=== PATIENT | female | born 1990 | race Caucasian/White ===

== ENCOUNTER 2017-10-19 10:56 | Emergency (ER) | payer BC, SELFPAY ==
[2017-10-19 11:18] VITALS: BP 136/72; PULSE 69; RESP 20; TEMP 36.6; O2SAT 97; BMI 26.4
--- NOTE | 2017-10-19 11:18 | XR_ITS ---
XR knee RT 4V COMPARISON: Right knee 04/24/2017 HISTORY: [place] popping sound in the knee, previous surgery of the knee TECHNIQUE: AP PA and lateral weight-bearing views and sunrise view FINDINGS: The 2 threaded screws are again seen in the proximal tibia for the previous tibial tubercle osteotomy area the medial lateral joint space appear normal. There is a somewhat hypoplastic appearing patella. There is no obvious effusion. IMPRESSION: Postsurgical changes stable, no definite acute pathology noted
--- NOTE | 2017-10-19 12:03 | HMH.EDUTC ---
[facility] [place] Clinical Impression: Right anterior knee pain, Nail-patella syndrome Disposition: Home, Self-Care Condition on Discharge: Good Instructions: How to Use Crutches, How To Perform RICE (Rest, Ice, Compress, Elevate), DI for Knee Pain, How to Use a Knee Immobilizer Additional Instructions: * nonweight bearing right lower extremity * Rest * ice 15-20 mins 3-4 times a day * knee immobilizer for support and swelling unless in shower so sitting still with knee extended and elevated and supported. Be sure not too tight but not too loose either * Elevate as discussed as much as possible to help reduce swelling and therefore, pain * Ibuprofen every 6 hours as needed for pain and inflammation. If you need something more, you can take tylenol every 4 hours as needed as long as your primary care provider has told you it is ok to take both. Referrals: Julian Adkins MD [Staff Physician] - (Call Dr. adkins's office first thing Saturday. Report symptoms and visit to [facility]. Be sure they know we did xrays as he will likely review before scheduling your follow up appointment. Return for new or worsening symptoms) Time of Disposition: 12:22 Medical Decision Making Vital Signs: 10/19/17 11:18 Temperature 97.8 F Temperature Source Temporal Artery Scan Pulse Rate [Right Radial] 69 Respiratory Rate 20 Blood Pressure [Right Arm] 136/72 Blood Pressure Mean [Right Arm] 93 Blood Pressure Source [Right Arm] Automatic Cuff Blood Pressure Position [Right Arm] Sitting 02 Sat by Pulse Oximetry 97 Oxygen Delivery Method Room Air Orders (Tests/Meds): ORDERS Category Date Time Status XR knee RT 4V Stat Exams 10/19/17 11:18 Taken - Radiology Data #1 Image(s): Knee (right) Image Reviewed: Yes I reviewed the patient's radiology image w/the ED provider [facility] xrays w/ NIKKI Brady. No acute findings. Hx of surgery and nail patella syndrome present but no acute findings. He agrees that knee immobilizer and no weight bearing until follow up with ortho - Sumanth Inquiry Pt receiving controlled substance: No [facility] [place] - General Stated complaint: right knee pain Time Seen by Provider: 10/19/17 12:04 Mode of Arrival: Family Vehicle Source of Information: Patient Limitations: No Limitations Description of Symptoms (Recalled from Triage Doc. by RN): PT STATES THAT SHE HAD RIGHT KNEE SURGERY IN FEBRUARY OF 2017 BY AND WAS TOLD TO EXPECT NUMBNESS AND TINGLING R/T NERVE DAMAGE. PT STATES THAT SHE WAS SITTING STYLE WHEN SHE EXTENDED HER LEG SHE HEARD A POP AND IS NOW EXPERIENCING PAIN. HEENT Symptoms (Recalled from RN notes): No Resp Symptoms (Recalled from RN notes): No Skin Symptoms (Recalled from RN notes): No MS Symptoms (Recalled from RN notes): Yes (RIGHT KNEE PAIN AFTER HEARING A POP) Functional Status (Recalled from RN notes): NA - History of Present Illness Provider Complaint: c/o right anterior knee pain x 2-3 days. 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 Surgery by Dr. adkins in Summer 2016 because my patella kept dislocating . pt reports nerves were cut during the procedure and she was told to expect N/T. No new injury but several days ago she was sitting style and when she straightened out her right knee, she heard a pop and has had right anterior knee pain with intermittent swelling since. No treatment before arrival. Hasn't taken or tried anything for symptoms. Full baseline ROM but pain w/ movement, primarily w/ flexion past 90 degrees. N/T unchanged in last several days yet worse since last saw Jed 3 months ago. - Related Data Home Medications Medication Instructions Recorded Confirmed Estrogen,Con/M-Progest Acet 1 each PO DAILY 10/19/17 10/19/17 [Prempro 0.3 mg-1.5 mg Tablet] Pantoprazole Sodium [Protonix 40mg 40 mg PO DAILY 10/19/17 10/19/17 tablet] Sucralfate [Carafate 1gm Tab] 1 gm PO ACHS 10/19/17 10/19/17 Allergies Allergy/AdvReac Type Severity Reaction Stat
--- NOTE | 2017-10-19 12:15 | ED_ITS ---
[facility] [place] Clinical Impression: Right anterior knee pain, Nail-patella syndrome Disposition: Home, Self-Care Condition on Discharge: Good Instructions: How to Use Crutches, How To Perform RICE (Rest, Ice, Compress, Elevate), DI for Knee Pain, How to Use a Knee Immobilizer Additional Instructions: * nonweight bearing right lower extremity * Rest * ice 15-20 mins 3-4 times a day * knee immobilizer for support and swelling unless in shower so sitting still with knee extended and elevated and supported. Be sure not too tight but not too loose either * Elevate as discussed as much as possible to help reduce swelling and therefore , pain * Ibuprofen every 6 hours as needed for pain and inflammation. If you need something more, you can take tylenol every 4 hours as needed as long as your primary care provider has told you it is ok to take both. Referrals: Julian Adkins MD [Staff Physician] - (Call Dr. adkins's office first thing Saturday. Report symptoms and visit to [facility]. Be sure they know we did xrays as he will likely review before scheduling your follow up appointment. Return for new or worsening symptoms) Time of Disposition: 12:22 Medical Decision Making Vital Signs: 10/19/17 11:18 Temperature 97.8 F Temperature Source Temporal Artery Scan Pulse Rate [Right Radial] 69 Respiratory Rate 20 Blood Pressure [Right Arm] 136/72 Blood Pressure Mean [Right Arm] 93 Blood Pressure Source [Right Arm] Automatic Cuff Blood Pressure Position [Right Arm] Sitting 02 Sat by Pulse Oximetry 97 Oxygen Delivery Method Room Air Orders (Tests/Meds): ORDERS Category Date Time Status XR knee RT 4V Stat Exams 10/19/17 11:18 Taken - Radiology Data #1 Image(s): Knee (right) Image Reviewed: Yes I reviewed the patient's radiology image w/the ED provider [facility] xrays w/ NIKKI Brady. No acute findings. Hx of surgery and nail patella syndrome present but no acute findings. He agrees that knee immobilizer and no weight bearing until follow up with ortho - Sumanth Inquiry Pt receiving controlled substance: No [facility] [place] - General Stated complaint: right knee pain Time Seen by Provider: 10/19/17 12:04 Mode of Arrival: Family Vehicle Source of Information: Patient Limitations: No Limitations Description of Symptoms (Recalled from Triage Doc. by RN): PT STATES THAT SHE HAD RIGHT KNEE SURGERY IN FEBRUARY OF 2017 BY AND WAS TOLD TO EXPECT NUMBNESS AND TINGLING R/T NERVE DAMAGE. PT STATES THAT SHE WAS SITTING STYLE WHEN SHE EXTENDED HER LEG SHE HEARD A POP AND IS NOW EXPERIENCING PAIN. HEENT Symptoms (Recalled from RN notes): No Resp Symptoms (Recalled from RN notes): No Skin Symptoms (Recalled from RN notes): No MS Symptoms (Recalled from RN notes): Yes (RIGHT KNEE PAIN AFTER HEARING A POP) Functional Status (Recalled from RN notes): NA - History of Present Illness Provider Complaint: c/o right anterior knee pain x 2-3 days. 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 Surgery by Dr. adkins in Summer 2016 because my patella kept dislocating . pt reports nerves were cut during the procedure and she was told to expect N/T. No new injury but several days ago she was sitting style and when she straightened out her right knee, she heard a pop and has had right anterior knee pain with intermittent swelling since. No treatment before arrival. Hasn't taken or tried anything for symptoms. Full baseline ROM but pain w/ movement, primarily w/ flexion past 90 degrees.
[2017-10-19 12:25] VITALS: BP 125/77; PULSE 67; RESP 20; TEMP 36.9; O2SAT 98
== END 2017-10-19 12:28 | disposition home or self-care (01) ==
PROVIDERS: Emergency Provider Nurse Practitioner Family
DX: M25.561 Pain in right knee (principal); Q87.2 Congenital malformation syndromes predominantly involving limbs
CPT/HCPCS: 73564; 99202

== ENCOUNTER → 2017-11-22 10:22 | Outpatient (CLI) | payer BC, SELFPAY ==
[2017-11-22 10:28] LABS: Microscopic, Urine URINE MICROSCOPIC (MICROSCOPIC)
[2017-11-22 13:35] LABS: Appearance,Urine SL CLOUDY (Clear); Bilirubin,Urine Negative (Negative); Blood, Urine Negative (Negative); Color,Urine YELLOW (Yellow); Glucose,Urine (UA) Negative (Negative); Ketones,Urine Negative (Negative); Leukocyte Esterase,Urine Negative (Negative); Nitrate,Urine Negative (Negative); Protein,Urine Negative (Negative); Specific Gravity, Urine 1.015 (1.005-1.030); Urobilinogen,Urine 0.2 EU/dl (0.2)
[2017-11-22 13:59] LABS: Anion Gap 12.5 mEq/L (5-15); Blood Urea Nitrogen 11 mg/dL (7-18); Calcium 8.6 mg/dL (8.5-10.1); Carbon Dioxide 26 mmol/L (21.0-32.0); Chloride 105 mmol/L (98-107); Creatinine,Serum 0.71 mg/dL (0.55-1.02); Estimated Glomerular Filt Rate 100 ml/min (>60); GFR (African American) 120 ML/MIN (>60); Glucose 81 mg/dL (74-106); Phosphorous 3.3 mg/dL (2.4-4.9); Potassium 3.5 mmoL/L (3.5-5.1); Sodium 140 mmol/L (136-145)
[2017-11-22 14:06] LABS: Amorphous Sediment,Urine 1+ /lpf; Bacteria,Urine 1+ /lpf; Squamous Epithelial Cell,Urine 50-100 #/hpf (0-5)
[2017-11-22 14:16] LABS: Creatinine,Urine Random 87 mg/dL (20-320); Total Protein,Urine Random 19.7 mg/dL (0.0-11.9)
== END ==
PROVIDERS: Visit Provider Internal Medicine Nephrology
DX: Z01.818 Encounter for other preprocedural examination (principal)
CPT/HCPCS: 36415; 80069; 81001; 82570; 84155

== ENCOUNTER → 2018-06-03 10:18 | Outpatient (CLI) | payer BC, SELFPAY ==
--- NOTE | 2018-06-03 10:24 | XR_ITS ---
XR knee RT 2V HISTORY: Follow-up surgery ITS.REASON: 6 month post op check ORDERING PHYSICIAN: Julian Adkins MD PATIENT AGE: 27 years COMPARISON: 10/19/2017 FINDINGS: Status post tibial tubercle osteotomy with patellar tendon transfer. The osteotomy site is very perceptible consistent with healing of the osteotomy. Hypoplastic patella once again noted. IMPRESSION: Good alignment status post tibial tuberosity osteotomy with patellar tendon transfer with hypoplastic patella
== END ==
PROVIDERS: PCP Physician Assistant; Visit Provider Orthopaedic Surgery
DX: Z47.89 Encounter for other orthopedic aftercare (principal); M25.561 Pain in right knee
CPT/HCPCS: 73560

== ENCOUNTER → 2018-06-04 08:34 | Outpatient (CLI) | payer BC, SELFPAY ==
--- NOTE | 2018-06-04 08:35 | US_ITS ---
US transvaginal Ordering Physician: Bobby Maloney MD Patient Age: 27 years: Female HISTORY: ITS.REASON: pelvic mass Pelvic pain history of total hysterectomy per technologist MIKE. Recent CT showed left pelvic mass TECHNIQUE: Transvaginal pelvic ultrasound COMPARISON :CT abdomen pelvis from 06/01/2018 . Ultrasound pelvis June 2015. FINDINGS Uterus surgically removed . The technologist states the patient has had a total hysterectomy. I see from ultrasound June 2015 the uterus was removed the patient had both ovaries at that time On today's study Left ovary (or remnant left ovary) = 1.9 cm x 1.4 cm overall size. Slightly bilobed configuration of this left ovary which matches the CT Within the larger lobe of this left ovary there is a there is a up to 8.5 mm x 7.5 mm cyst. . No right ovary is identified. No fluid in cul-de-sac. IMPRESSION... The patient is supposed to have had total hysterectomy... As by history provided by technologist MIKE However we see a bilobed structure at posterior left adnexa,. Thus If this history is correct, is a likely left ovarian remnant.. It measures up to 1.9 x 1.4 cm and contains a 8.5 mm cyst Findings fairly well matched appearance posterior left pelvis on recent CT . no right ovary identified Uterus surgically absent as is
== END ==
PROVIDERS: PCP Physician Assistant; Visit Provider Obstetrics & Gynecology
DX: R19.00 Intra-abdominal and pelvic swelling, mass and lump, unspecified site (principal)
CPT/HCPCS: 76830

== ENCOUNTER → 2018-06-17 13:06 | Outpatient (CLI) | payer BC, SELFPAY ==
--- NOTE | 2018-06-17 13:06 | US_ITS ---
US transvaginal HISTORY: ITS.REASON: Pelvic Pain, follow-up left ovarian remnant cyst ORDERING PHYSICIAN: Bobby Maloney MD PATIENT AGE: 27 years Comparison: None FINDINGS: There has been a prior hysterectomy. Right ovary is also been removed. What appears to represent the left ovary measures 2.9 x 1.3 cm and contains a 2 cm cyst. An additional small cyst is also noted at 6 mm involving the left ovary. Small amount of cul-de-sac fluid noted. There is blood flow to the left ovary. IMPRESSION: 1. Prior hysterectomy and right oophorectomy. 2. There is a 2 cm and a 0.6 cm left ovarian cyst
== END ==
PROVIDERS: PCP Obstetrics & Gynecology; Visit Provider Obstetrics & Gynecology
DX: R10.2 Pelvic and perineal pain (principal)
CPT/HCPCS: 76830

== ENCOUNTER → 2018-06-20 11:32 | Outpatient (CLI) | payer BC, SELFPAY ==
[2018-06-21 18:10] LABS: Cancer Antigen (CA) 125 8.6 U/mL (0.0-38.1)
== END ==
PROVIDERS: PCP Obstetrics & Gynecology; Visit Provider Obstetrics & Gynecology
DX: R19.00 Intra-abdominal and pelvic swelling, mass and lump, unspecified site (principal)
CPT/HCPCS: 36415; 86316

== ENCOUNTER 2018-06-23 14:00 | Outpatient (RCR) | payer BC, SELFPAY ==
--- NOTE | 2018-06-11 17:19 | HMH.PTOPEV ---
PT Outpatient Evaluation Rehab PT Outpatient Evaluation Start: 06/11/18 16:52 Freq: Status: Active Protocol: Document 06/11/18 16:53 PDESEROUX (Rec: 06/11/18 17:19 PDESEROUX [id number]) Electronically Signed By Uriel Fung PT 06/11/18 16:53 Outpatient Therapy Subjective History Subjective History Pt. is a 27 year old white female who presents to outpatient PT with onset of R knee/leg pain, numbness, and tingling after her R knee surgery on February 18, 2017. Pt. reports feeling these knots around her knee that would send numbness and tingling down her leg to her foot when she touched them post arthroscopic/R knee hamstring tendon graft patella relocation. Pt. reports symptoms have worsen since then and have been creating functional limitations. PMH includes heart murmur, heart disease, complete hysterectomy , cholecystectomy, R knee surgery, chiari malformation, and hydrocephalus. Current medications include inhaler, Topamax, estrogen, Protonix, potassium, and magnesium. Chief Complaint Pain Other Symptom Type Ache Numbness Tingling Symptoms Relieved By Heat Ice OTC Meds Symptoms Aggravated By Physical Activity Twisting Walking Prior Functional Limitations None Current Functional Limitations Squatting Recreation Activity Stairs Symptom Description Constant and Continuous Level of pain today (0-10) 3 Pain scale - at its best (0-10) 3 Pain scale - at its worst (0-10) 8 Hip/Knee Eval Gait Observation General Gait Pattern Observation No Deviations/Normal Assistive Device Assistive Devices None / NA Palpation Tenderness right Knee Palpation Finding Tenderness Knee Palpation Overall Comment grade 2 +TTP pes anserine tendon insertion, supra/infra
== END 2018-06-23 14:01 | disposition home or self-care (01) ==
LOC: PT 14:00
PROVIDERS: PCP Physician Assistant; Visit Provider Orthopaedic Surgery
DX: Z48.89 Encounter for other specified surgical aftercare (principal)
CPT/HCPCS: 97035; 97140; 97163

== ENCOUNTER → 2018-07-01 14:17 | Outpatient (CLI) | payer BC, SELFPAY ==
[2018-07-01 14:19] LABS: Microscopic, Urine URINE MICROSCOPIC (MICROSCOPIC)
[2018-07-01 14:33] LABS: Appearance,Urine CLEAR (Clear); Bilirubin,Urine Negative (Negative); Blood, Urine Negative (Negative); Color,Urine YELLOW (Yellow); Glucose,Urine (UA) Negative (Negative); Ketones,Urine Negative (Negative); Leukocyte Esterase,Urine Negative (Negative); Nitrate,Urine Negative (Negative); Protein,Urine Negative (Negative); Specific Gravity, Urine >= 1.030 (1.005-1.030); Urobilinogen,Urine 0.2 EU/dl (0.2)
[2018-07-01 14:34] LABS: Urine Pregnancy, HCG Qual. Negative (Negative)
[2018-07-01 15:00] LABS: Bacteria,Urine Trace /lpf; WBC,Urine Occasional #/hpf (0-3)
[2018-07-01 15:08] LABS: Basophils # 0.1 K/mm3 (0-0.2); Basophils % 0.8 % (0.1-2.0); Eosinophils # 0.3 K/mm3 (0.0-0.4); Eosinophils % 2.5 % (0.1-12.0); Hematocrit 44.3 % (37.0-47.0); Hemoglobin 14.3 g/dL (12.2-16.2); Lymphocytes # 3.5 K/mm3 (0.7-4.5); Lymphocytes % 32.8 K/mm3 (10-50); Mean Corpuscular HGB Conc 32.2 g/dL (31.8-35.4); Mean Corpuscular Hemoglobin 30.4 pg (27.0-31.2); Mean Corpuscular Volume 94.5 fl (81-99); Mean Platelet Volume 7.9 fl (7.4-10.4); Monocytes # 0.7 K/mm3 (0.1-1.0); Monocytes % 6.9 % (1.7-9.3); Neutrophils # 6.1 K/mm3 (1.8-7.8); Neutrophils % 57.1 % (37.0-80.0); Platelet Count 228 K/mm3 (142-424); Red Blood Count 4.69 M/mm3 (4.20-5.40); Red Cell Distribution Width 12.7 % (11.5-17.5); White Blood Count 10.7 K/mm3 (4.8-10.8)
[2018-07-01 15:41] LABS: Alanine Aminotransferase 17 U/L (12-78); Albumin Level 3.9 gm/dL (3.4-5.0); Albumin/Globulin Ratio 1.5 (1.1-1.8); Alkaline Phosphatase 77 U/L (46-116); Anion Gap 12.1 mEq/L (5-15); Aspartate Amino Transferase 13 U/L (15-37); Bilirubin,Total 0.2 mg/dL (0.2-1.0); Blood Urea Nitrogen 11 mg/dL (7-18); Calcium 8.5 mg/dL (8.5-10.1); Carbon Dioxide 26 mmol/L (21.0-32.0); Chloride 107 mmol/L (98-107); Creatinine,Serum 0.61 mg/dL (0.55-1.02); Estimated Glomerular Filt Rate 119 ml/min (>60); GFR (African American) 143 ML/MIN (>60); Globulin 2.6 gm/dl (1.3-3.2); Glucose 83 mg/dL (74-106); Potassium 4.1 mmoL/L (3.5-5.1); Sodium 141 mmol/L (136-145); Total Protein,Serum 6.5 gm/dL (6.4-8.2)
== END ==
PROVIDERS: PCP Physician Assistant; Visit Provider Obstetrics & Gynecology
DX: Z01.818 Encounter for other preprocedural examination (principal); N94.9 Unspecified condition associated with female genital organs and menstrual cycle
CPT/HCPCS: 36415; 80053; 81001; 81025; 85025

== ENCOUNTER → 2018-11-05 11:14 | Outpatient (CLI) | payer BC, SELFPAY ==
[2018-11-05 11:25] LABS: Microscopic, Urine URINE MICROSCOPIC (MICROSCOPIC)
[2018-11-05 14:38] LABS: Appearance,Urine CLEAR (Clear); Bilirubin,Urine Negative (Negative); Blood, Urine Negative (Negative); Color,Urine YELLOW (Yellow); Glucose,Urine (UA) Negative (Negative); Ketones,Urine Negative (Negative); Leukocyte Esterase,Urine Negative (Negative); Nitrate,Urine Negative (Negative); PH,Urine 7.5 (5.0-8.5); Protein,Urine Negative (Negative); Specific Gravity, Urine 1.015 (1.005-1.030); Urobilinogen,Urine 0.2 EU/dl (0.2)
[2018-11-05 14:44] LABS: Albumin Level 3.7 gm/dL (3.4-5.0); Anion Gap 10.9 mEq/L (5-15); Blood Urea Nitrogen 6 mg/dL (7-18); Calcium 8.7 mg/dL (8.5-10.1); Carbon Dioxide 29 mmol/L (21.0-32.0); Chloride 107 mmol/L (98-107); Creatinine,Serum 0.71 mg/dL (0.55-1.02); Estimated Glomerular Filt Rate 99 ml/min (>60); GFR (African American) 119 ML/MIN (>60); Glucose 71 mg/dL (74-106); Phosphorous 3.9 mg/dL (2.4-4.9); Potassium 3.9 mmoL/L (3.5-5.1); Sodium 143 mmol/L (136-145)
[2018-11-05 15:07] LABS: Creatinine,Urine Random 117 mg/dL (20-320); Total Protein,Urine Random 14.7 mg/dL (0.0-11.9)
[2018-11-05 16:11] LABS: Bacteria,Urine Trace /lpf; WBC,Urine Occasional #/hpf (0-3)
== END ==
PROVIDERS: PCP Physician Assistant; Visit Provider Internal Medicine Nephrology
DX: R80.9 Proteinuria, unspecified (principal); L60.9 Nail disorder, unspecified; R39.15 Urgency of urination
CPT/HCPCS: 36415; 80069; 81001; 82570; 84155

== ENCOUNTER 2018-11-26 11:00 | Outpatient (RCR) | payer BC, SELFPAY | END 2018-12-10 14:04 | disposition home or self-care (01) | LOC: PT.CARL 11:00 | PROVIDERS: Visit Provider Physician Assistant | DX: M54.5 Low back pain (principal) | CPT/HCPCS: 97010; 97014; 97110; 97163; G0283 ==

== ENCOUNTER → 2019-01-30 08:57 | Outpatient (POV) | payer BC, SELFPAY | PROVIDERS: Visit Provider Specialist | DX: M79.609 Pain in unspecified limb (principal); R20.2 Paresthesia of skin | CPT/HCPCS: 95886; 95908 ==

== ENCOUNTER → 2019-05-27 08:11 | Outpatient (CLI) | payer BC, SELFPAY ==
--- NOTE | 2019-05-27 08:13 | MR_ITS ---
PROCEDURE: MR CERVICAL SPINE WO CON CLINICAL INDICATION: CHIARI MALFORMATION TYPE 1 Chronic headaches common chronic neck pain numbness in hands and legs COMPARISON: No exams were available for comparison TECHNIQUE: Standard multiplanar multiecho sequences are performed without contrast. 3-D MIP and myelographic images are also rendered and reviewed FINDINGS: There is normal alignment. The cerebellar tonsils extend below the level of foramen magnum by approximately 9 mm. Please see MRI brain for further description. The cervical spine has an otherwise unremarkable appearance. No disc herniation, significant degenerative change, disc bulge, or foraminal narrowing or canal stenosis is evident. Spinal cord has an unremarkable appearance. No syringomyelia or other significant anomaly. IMPRESSION: Chiari 1 malformation/cerebellar ectopia otherwise negative MRI of cervical spine Dictated by: Oral Ash MD 05/29/2019 10:06 Electronically signed by Oral Ash MD in [place] 05/29/2019 10:06
--- NOTE | 2019-05-27 08:14 | MR_ITS ---
PROCEDURE: MR HEAD/BRAIN WO CON CLINICAL INDICATION: CHIARI MALFORMATION TYPE 1 Chronic headaches, neck pain, Chiari 1 malformation COMPARISON: HEADWO CT head/brain wo con from 03/02/2019 MR CERVICAL SPINE WO CON from 05/27/2019 TECHNIQUE: Routine multiplanar multi echo sequences are performed without gadolinium enhancement. FINDINGS: No midline shift, mass effect, intracranial hemorrhage or acute infarction is evident. There is a prominent cavum septum vergae and cavum septum pellucidum. There is also mild prominence of the lateral ventricles. No transependymal flow of CSF is evident. There is normal blake-white matter differentiation. There is a small T2 white matter hyperintensity in the left frontal lobe which is nonspecific. The pituitary, optic chiasm, and corpus callosum are unremarkable. There are low-lying cerebellar tonsils. This is somewhat better demonstrated on the MRI of the cervical spine as there is some motion artifact on the sagittal T2 weighted images. Cerebellar ectopia is 7-8 mm. The 4th ventricle has an unremarkable appearance. IMPRESSION: 1. Prominent cavum septum pellucidum and cavum vergae 2. There is mild dilatation of the lateral ventricles but no transependymal flow of CSF 3. 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
== END ==
PROVIDERS: PCP Physician Assistant; Visit Provider Psychiatry & Neurology Neurology
DX: G93.5 Compression of brain (principal)
CPT/HCPCS: 70551; 72141; 76376

== ENCOUNTER → 2019-07-15 12:40 | Outpatient (POV) | payer BC, SELFPAY | PROVIDERS: Referring Provider Psychiatry & Neurology Neurology | DX: Z00.00 Encounter for general adult medical examination without abnormal findings (principal) ==

== ENCOUNTER → 2019-10-23 10:09 | Outpatient (CLI) | payer BC, SELFPAY ==
[2019-10-23 10:23] LABS: Microscopic, Urine URINE MICROSCOPIC (MICROSCOPIC)
[2019-10-23 13:43] LABS: Appearance,Urine CLOUDY (Clear); Bilirubin,Urine Negative (Negative); Blood, Urine Negative (Negative); Color,Urine YELLOW (Yellow); Glucose,Urine (UA) Negative (Negative); Ketones,Urine Negative (Negative); Leukocyte Esterase,Urine Negative (Negative); Nitrate,Urine Negative (Negative); Protein,Urine Negative (Negative); Specific Gravity, Urine >= 1.030 (1.005-1.030); Urobilinogen,Urine 0.2 EU/dl (0.2)
[2019-10-23 13:47] LABS: Creatinine,Urine Random 338 mg/dL (20-320); Total Protein,Urine Random 40.1 mg/dL (0.0-11.9)
[2019-10-23 13:55] LABS: Bacteria,Urine 2+ /lpf; Squamous Epithelial Cell,Urine 20-50 #/hpf (0-5)
[2019-10-23 13:56] LABS: Amorphous Sediment,Urine 1+ /lpf
[2019-10-23 14:38] LABS: Blood Urea Nitrogen 12 mg/dL (7-18); Calcium 8.7 mg/dL (8.5-10.1); Carbon Dioxide 28 mmol/L (21.0-32.0); Chloride 105 mmol/L (98-107); Creatinine,Serum 0.71 mg/dL (0.55-1.02); Estimated Glomerular Filt Rate 98 ml/min (>60); GFR (African American) 119 ML/MIN (>60); Glucose 85 mg/dL (74-106); Phosphorous 3.7 mg/dL (2.4-4.9); Sodium 141 mmol/L (136-145)
== END ==
PROVIDERS: Visit Provider Internal Medicine Nephrology
DX: R80.9 Proteinuria, unspecified (principal); L60.9 Nail disorder, unspecified; R39.15 Urgency of urination
CPT/HCPCS: 36415; 80069; 81001; 82570; 84155; 87086

== ENCOUNTER → 2020-01-06 14:13 | Outpatient (CLI) | payer BC, SELFPAY ==
[2020-01-06 14:49] LABS: Basophils # 0.3 K/mm3 (0-0.2); Basophils % 2.7 % (0.1-2.0); Eosinophils # 0.3 K/mm3 (0.0-0.4); Eosinophils % 3.1 % (0.1-12.0); Hematocrit 45.3 % (37.0-47.0); Hemoglobin 15.2 g/dL (12.2-16.2); Lymphocytes # 2.8 K/mm3 (0.7-4.5); Lymphocytes % 29.1 % (10-50); Mean Corpuscular HGB Conc 33.5 g/dL (31.8-35.4); Mean Corpuscular Hemoglobin 30.8 pg (27.0-31.2); Mean Corpuscular Volume 92.1 fl (81-99); Mean Platelet Volume 8.2 fl (7.4-10.4); Monocytes # 0.5 K/mm3 (0.1-1.0); Monocytes % 5.3 % (1.7-9.3); Neutrophils # 5.8 K/mm3 (1.8-7.8); Neutrophils % 59.8 % (37.0-80.0); Platelet Count 261 K/mm3 (142-424); Red Blood Count 4.92 M/mm3 (4.20-5.40); Red Cell Distribution Width 12.8 % (11.5-17.5); White Blood Count 9.8 K/mm3 (4.8-10.8)
[2020-01-06 15:29] LABS: INR 1.02 (0.9-1.1); Prothrombin Time 10.6 seconds (9.4-11.8)
[2020-01-06 16:29] LABS: Chloride 105 mmol/L (98-107); Sodium 139 mmol/L (136-145)
[2020-01-06 16:32] LABS: Blood Urea Nitrogen 10 mg/dl (7-17); Estimated Glomerular Filt Rate 119 ml/min (>60); GFR (African American) 144 ML/MIN (>60)
[2020-01-06 16:33] LABS: Calcium 9.6 mg/dl (8.4-10.2); Carbon Dioxide 26 mmol/L (22.0-30.0); Glucose 77 mg/dl (74-100)
== END ==
PROVIDERS: Visit Provider Neurological Surgery
DX: Z00.00 Encounter for general adult medical examination without abnormal findings (principal); G93.5 Compression of brain; D69.9 Hemorrhagic condition, unspecified
CPT/HCPCS: 36415; 80048; 85025; 85610; 85730

== ENCOUNTER → 2020-03-28 10:05 | Outpatient (CLI) | payer BC, SELFPAY ==
--- NOTE | 2020-03-28 10:28 | XR_ITS ---
PROCEDURE: XR KNEE RT 4V CLINICAL INDICATION: right knee pain COMPARISON: [id number] XR knee RT 4V from 10/19/2017 [id number] XR knee RT 2V from 06/03/2018 [id number] XR knee RT 3V from 10/02/2018 XR KNEE RT 3V from 09/16/2019 FINDINGS: No fracture or dislocation. No lytic or blastic change. There is normal mineralization. The joint spaces are well-preserved. No significant degenerative/arthritic changes. No erosive changes evident. Other findings:There has been prior surgery with 2 screws through the proximal aspect of the anterior tibia from tibial tuberosity transfer.. 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
[2020-03-28 10:54] LABS: Basophils # 0.1 K/mm3 (0-0.2); Eosinophils # 0.3 K/mm3 (0.0-0.4); Eosinophils % 3.1 % (0.1-12.0); Hematocrit 48.6 % (37.0-47.0); Hemoglobin 16.1 g/dL (12.2-16.2); Lymphocytes # 2.7 K/mm3 (0.7-4.5); Lymphocytes % 28.5 % (10-50); Mean Corpuscular HGB Conc 33.2 g/dL (31.8-35.4); Mean Corpuscular Hemoglobin 31.4 pg (27.0-31.2); Mean Corpuscular Volume 94.7 fl (81-99); Mean Platelet Volume 8.6 fl (7.4-10.4); Monocytes # 0.6 K/mm3 (0.1-1.0); Monocytes % 6.1 % (1.7-9.3); Neutrophils # 5.9 K/mm3 (1.8-7.8); Neutrophils % 61.2 % (37.0-80.0); Platelet Count 232 K/mm3 (142-424); Red Blood Count 5.13 M/mm3 (4.20-5.40); Red Cell Distribution Width 12.8 % (11.5-17.5); White Blood Count 9.6 K/mm3 (4.8-10.8)
[2020-03-28 11:32] LABS: Chloride 102 mmol/L (98-107); Potassium 4.5 mmoL/L (3.5-5.1); Sodium 141 mmol/L (136-145)
[2020-03-28 11:35] LABS: Alanine Aminotransferase 19 U/L (12-78); Albumin Level 4.6 g/dl (3.5-5.0); Albumin/Globulin Ratio 1.8 (1.1-1.8); Alkaline Phosphatase 75 U/L (38-126); Anion Gap 13.5 mEq/L (5-15); Aspartate Amino Transferase 28 U/L (14-36); Bilirubin,Total 0.5 mg/dl (0.2-1.3); Blood Urea Nitrogen 7 mg/dl (7-17); Carbon Dioxide 30 mmol/L (22.0-30.0); Estimated Glomerular Filt Rate 100 ml/min (>60); GFR (African American) 121 ML/MIN (>60); Globulin 2.5 g/dL (1.3-3.2); Total Protein,Serum 7.1 g/dl (6.3-8.2)
[2020-03-28 11:36] LABS: Calcium 9.6 mg/dl (8.4-10.2); Glucose 91 mg/dl (74-100)
[2020-03-28 12:52] LABS: Coronavirus 19 IgG Antibody Negative (Negative); Coronavirus 19 IgM Antibody Negative (Negative)
== END ==
PROVIDERS: Visit Provider Orthopaedic Surgery
DX: M25.561 Pain in right knee (principal); Z01.818 Encounter for other preprocedural examination
CPT/HCPCS: 36415; 73564; 80053; 85025; 86328

== ENCOUNTER 2020-03-30 06:26 | Day surgery (SDC) | payer BC, SELFPAY ==
[2020-03-28 10:11] VITALS: BMI 35.2
[2020-03-30] VITALS (12 sets, daily range): BP systolic 112–139; BP diastolic 62–78; PULSE 73–111; RESP 18–20; TEMP 36.3–43; O2SAT 91–98
--- NOTE | 2020-03-30 06:53 | XR_ITS ---
PROCEDURE: XR CHEST 2V CLINICAL INDICATION: preop order Okay, do not receive them today will write them. And you. I will let you know so you can cancel the 1st fat percent we need to. We have new male. COMPARISON: CXR1 CHEST-PORTABLE from 04/24/[address] CHEST W/O CONTRAST from 05/31/2017 CXR2V XR chest 2V from 10/25/2018 FINDINGS: No fracture or dislocation. No lytic or blastic change. There is normal mineralization. The joint spaces are well-preserved. No significant degenerative/arthritic changes. No erosive changes evident. Other findings:None. IMPRESSION: No acute findings. Dictated by: Oral Ash MD 03/30/2020 08:29 Electronically signed by Oral Ash MD in [place] 03/30/2020 08:29
--- NOTE | 2020-03-30 09:06 | P.PN_ITS ---
[facility] Anesthesia Checklist - Patient Identification Patient Identification: Arm Band, Verbal (Name & ) - Structural Data Admitted From: Home Planned Operative Procedure/s: Right knee exploration of saphanous nerve, hardware removal Consent for Planned Operative Procedure(s) Verified: Yes Verified Documents: Surgical Consent, History and Physical - NPO Status Verified Time NPO: 23:30 - Chart Verification Results Verified: CBC, BMP, UA - Additional verifications Patient : No Anesthesia Reactions: No Hx Blood Transfusions: No Blood Transfusion Reaction: No - Airway Assessment C-Spine Mobility Assessed: Yes TMJ Mobility Assessed: Yes Dentition: Edentulous - Neurological Assessment Level of Consciousness: Awake, Alert, Appropriate, Follows Commands Hx Seizures: No Numbness or tingling in extremities: No - Anesthesia Plan Anesthesia Risk discussed: Yes Anesthesia Plan: Verified ASA Class: III Anesthesia Type: General [facility] History I have reviewed the patient's past medical history: Yes Medical History: Reports:: Anxiety, Asthma, Depression, Gastroesophageal Reflux Disease(GERD), Migraine Denies:: Cancer, Diabetes Mellitus Type 1, Diabetes Mellitus Type 2, Internal Pacemaker, MRSA, Seizures *Have you ever received a pneumonia vaccine?: No *Have you received a flu vaccine this season?: No Other Medical History: Reports: Hypothyroidism, Other. Denies: Blood Tra nsfusion Reaction Comment:: obesity Anesthesia experience/problems:: no prior complications Laterality Cases: Right: Arthroscopy Knee, Bilateral: Tonsillectomy Other Surgeries: Yes: Cholecystectomy, Hysterectomy-Partial, Other. No: Pacemaker Amputation: No Fractures: No - *Social History Last grade of school completed: 9th or 10th Smoking Status: Current every day smoker Tobacco Type: cigarettes # Packs/Day (cigarettes): 1 Alcohol Intake: never Alcohol Intake Frequency:: holidays/special occasions only Substance Use Type: denies use *Occupational Status:: unemployed, disabled Housing: house Household Members: family *Travel in the last 8 weeks: None Family Hx:: No significant family history FACILITY ENGINEER history: Spontaneous
--- NOTE | 2020-03-30 11:22 | XR_ITS ---
PROCEDURE: XR KNEE RT 2V CLINICAL INDICATION: RT KNEE HARDWARE REMOVAL COMPARISON: No exams were available for comparison FINDINGS: Fluoroscopy time: 9 seconds Fluoro utilized for removal of proximal tibial screws. IMPRESSION: Removal of 2 proximal tibial screws Dictated by: Oral Ash MD 03/30/2020 13:22 Electronically signed by Oral Ash MD in [place] 03/30/2020 13:22
--- NOTE | 2020-03-30 15:12 | P.PN_ITS ---
[facility] Anesthesia Record Part I Intake, IV Amount: 1,700 Estimated blood loss (mL): 10 Urine output (mL): 0 Blood Products used (#): none Blood Pressure: 123/74 SaO2: 95 Pulse Rate: 105 Respiratory Rate: 20 Temperature: 98.1 F Patient is:: Drowsy, Nasal O2, Stable Stable to PACU at:: 15:00
--- NOTE | 2020-03-30 16:09 | SUR.PHASEI ---
1500- received into pacu, report from Wesley BARTH. Pt resting wquietly, dsg to right leg- CDI. Pt began getting nauseated approx 1520. Given 6.25 Phenergan at 1523. Pt obtained moderate relief. O2 remains on at 2L. Pt has mild pain. 1G Tylenol given IV and hung at 1530. Rupa Fonseca rn
--- NOTE | 2020-03-30 16:58 | HMH.ANESII ---
[facility] Anesthesia Record Part II Discharge Time: 15:30 Destination: Surgical Day Care (OP Surgery) PACU nurse assessment reviewed?: Yes Patient Condition:: Good Anesthesia Complications:: None Swallowing reflex intact?: Yes Cyanosis?: No Blood Pressure: 132/78 Pulse Rate: 107 Temperature: 97.3 F Mental Status: Alert & Oriented Pain level:: 0 Nausea and/or vomitting:: None Intake, IV Amount: 25
--- NOTE | 2020-03-30 17:14 | HMH.OPNOTE ---
Date of procedure: 03/30/20 Pre-op Diagnosis:: 1. Chronic pain, right knee 2. Entrapment of saphenous nerve, right 3. Status post tibial tubercle osteotomy, right 4. Nail-patella syndrome Post-op Diagnosis:: Same Procedure performed:: 1. Removal of hardware, right tibial tubercle 2. Exploration and decompression of saphenous nerve, right 3. 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 Adkins 3 years ago. Subsequently she also had her right knee manipulated two months after the surgery. Postoperatively she has been having pain and paresthesias over the anteromedial aspect of the right knee and tenderness over the tibial tuberosity hardware. No history of any knee giving out or catching or locking. No history suggestive of any patellar subluxation or dislocation since surgery. No history of any fevers, chills or rigors. No history of any redness or swelling around the knee. She is a chronic smoker and is disabled so she does not work. She had EMG/NCV studies last year which were unremarkable. A saphenous nerve/infrapatellar branch injury or entrapment is suspected. Following a detailed discussion patient opted for removal of tibial tuberosity screws and exploration, decompression and repair of the saphenous nerve/infrapatellar branch as appropriate. Please refer to my office note for full details. Operative findings:: The intraoperative findings included well fixed tibial tuberosity screws which were easily removed. No signs of infection noted at this level. The tibial tuberosity osteotomy has healed well. Entrapment of the saphenous nerve noted in the scar tissue. The infrapatellar branch of the saphenous nerve was noted to be passing through the musculotendinous junction of the sartorius muscle and found to be compressed at this level. To the articular branches of the saphenous nerve were found during the procedure and both were noted to be intact. The saphenous nerve below the level of infrapatellar branch is fairly thin but found to be intact. Operative note:: On the day of surgery patient and her partner were met in the preoperative area and positively identified. I have again reviewed the diagnosis, natural history and management options in detail including both nonsurgical and surgical. Given the continued and chronic symptoms, she wished to proceed with removal of hardware from the tibial tuberosity and exploration, decompression/repair of saphenous nerve and the infrapatellar branch of the saphenous nerve, right knee as appropriate at the time of surgery. I have told the patient that she may not get better and may even get worse. The complications discussed include but are not limited to infection, bleeding, injury to nerves and blood vessels, painful neuroma formation, injury to tendons, wound problems, cosmesis-long surgical scar from nerve expiration, stiffness, DVT and PE, CRPS (complex regional pain syndrome- pain, sensory and temperature changes, swelling and stiffness), incomplete relief of pain, incomplete return of function, and likely need for further surgery in future and also the risks of anesthesia including heart attack, stroke, and even . I have discussed how there is a small but real possibility of loss of use of the limb, loss of the limb or loss of life itself. I have also explained how additional surgery may be required if there are any complications or the symptoms fail to improve. We've also discussed the option of nonsurgical treatment. The patient understands and has asked appropriate questions. All her questions were answered and she verbalized a good understanding. She d
--- NOTE | 2020-03-30 18:59 | SUR.OPER ---
Two screws were removed from great tibial tuberosity. These were implanted 02/18/2017, per patient, by Roverto Hernandez and Darryl.
== END 2020-03-30 16:15 | disposition home or self-care (01) ==
LOC: OR 06:27
PROVIDERS: PCP Family Medicine; Visit Provider Orthopaedic Surgery
PROC: (CPT 20680; principal; 2020-03-30 09:45)
DX: Z47.2 Encounter for removal of internal fixation device (principal); Q87.2 Congenital malformation syndromes predominantly involving limbs; G57.81 Other specified mononeuropathies of right lower limb; M25.561 Pain in right knee
CPT/HCPCS: 20680; 64708; 71046; 73560; 76000; 96374; J0131; J2405

== ENCOUNTER → 2020-05-12 12:56 | Outpatient (CLI) | payer BC, SELFPAY ==
--- NOTE | 2020-05-12 12:56 | US_ITS ---
PROCEDURE: US BREAST LT COMPLETE CLINICAL INDICATION: US Left Breast- palpable mass swelling COMPARISON: No exams were available for comparison FINDINGS: Survey ultrasound images in all 4 quadrants show diffusely in rather homogeneous echogenicity. There is no suspicious cystic or solid lesion identified. There are 3 normal appearing nodes in the axilla. IMPRESSION: Unremarkable ultrasound left breast Dictated by: Dr. Doroteo Parker MD 05/17/2020 09:11 Dr. Doroteo Parker MD in [place] 05/17/2020 09:11
== END ==
PROVIDERS: PCP Family Medicine; Visit Provider Obstetrics & Gynecology
DX: N63.20 Unspecified lump in the left breast, unspecified quadrant (principal)
CPT/HCPCS: 76641

== ENCOUNTER → 2020-10-21 14:59 | Outpatient (CLI) | payer BC, SELFPAY ==
[2020-10-23 12:51] LABS: Rapid Plasma Reagin Ab Titer Non Reactive (NonRea<1:1)
[2020-10-24 06:50] LABS: Hep A Ab, IgM Negative (Negative); Hepatitis B Core Antibody IgM Negative (Negative); Hepatitis B Surface Antigen Negative (Negative)
[2020-10-24 19:25] LABS: HIV Screen 4th Generation wRfx Non Reactive (Non Reactive); Hepatitis C Antibody <0.1 s/co ratio (0.0-0.9)
[2020-10-25 19:33] LABS: Neisseria gonorrhoeae, NAA Negative (Negative)
== END ==
PROVIDERS: Visit Provider Obstetrics & Gynecology
DX: Z72.51 High risk heterosexual behavior (principal)
CPT/HCPCS: 36415; 80074; 86592; 86703; 87491; 87591; G0432

== ENCOUNTER 2020-12-02 21:29 | Emergency (ER) | payer BC, SELFPAY ==
[2020-12-02 22:08] VITALS: BP 117/74; PULSE 70; RESP 14; TEMP 36.9; O2SAT 94; BMI 34.3
--- NOTE | 2020-12-02 22:17 | CT_ITS ---
PROCEDURE: CT ABDOMEN PELVIS W CON CLINICAL INDICATION: abd pain Mid abdominal pain with diarrhea COMPARISON: CT ABDPELWO CT abdomen pelvis wo con from 06/01/2018 TECHNIQUE: IV Contrast: 75ML Isovue 370 Oral Contrast None Axial images obtained with sagittal and coronal reformats. All CT scans at the facility use one or more dose reduction, viz: automated exposure control, ma/kV adjustment per patient size (including targeted exams where dose is matched to indication, i.e. head), or iterative reconstruction technique. FINDINGS: LOWER THORAX: Cluster small nodules noted left lung base posteriorly 1 of which is calcified. Granulomas are considered. ABDOMEN & PELVIS: Prior cholecystectomy. No focal liver lesion apparent. The spleen, adrenal glands, pancreas, and kidneys have an unremarkable appearance. No intestinal obstruction or free air. Prior appendectomy. Prior hysterectomy. No evidence diverticulitis. There are few small air-fluid levels within the right colon. There is mild thickening of the transverse colon and splenic flexure and descending colon. Also mild thickening of the sigmoid colon. No acute bony findings. IMPRESSION: 1. Mild wall thickening of the transverse, descending, and sigmoid colon which may be due to colitis or nondistended state.. 2. Other nonacute findings as described above. Dictated by: Oral Ash MD 12/03/2020 08:42 Oral Ash MD in [place] 12/03/2020 08:42
[2020-12-02 22:30] VITALS: BP 115/64; PULSE 59; RESP 16; O2SAT 94
--- NOTE | 2020-12-02 22:32 | HMH.EDNVD ---
ED Disposition Clinical Impression: Colitis Disposition: Home, Self-Care Condition on Discharge: Good Instructions: DI for Colitis Additional Instructions: use meds and return specimen and see pcp and gi for follow up and recheck if sx increased Prescriptions: metroNIDAZOLE [metroNIDAZOLE 500mg Tablet] 500 mg PO TID #30 tab Transmission Status: Pending to [facility] Referrals: Isai Abdalla MD [Primary Care Provider] - Alexis Amin MD [Staff Physician] - - Critical Care Critical Care Time: No Attestation: On 12/02/20, the high probability of a clinically significant, sudden or life threatening deterioration of the following system(s) required my full and direct attention, intervention and personal management. The time I documented below is in addition to time spent performing reported procedures but includes the following listed in this critical care notation. Medical Decision Making - Medical Records Medical records reviewed: Yes: I reviewed the patient's medical records. - Sumanth Inquiry Pt receiving controlled substance: No Vital Signs: 12/02/20 22:08 12/02/20 22:30 12/02/20 23:30 Temperature 98.4 F Temperature Source Oral Pulse Rate 59 L 65 Pulse Rate [Right] 70 Respiratory Rate 14 16 14 Blood Pressure 115/64 93/59 L Blood Pressure [Right Arm] 117/74 Blood Pressure Mean [Right Arm] 88 Blood Pressure Source Automatic Cuff Automatic Cuff Blood Pressure Source [Right Arm] Automatic Cuff Blood Pressure Position Supine Supine Blood Pressure Position [Right Arm] Supine 02 Sat by Pulse Oximetry 94 L 94 L 96 Oxygen Delivery Method Room Air Room Air Room Air 12/02/20 23:37 Temperature Temperature Source Pulse Rate 66 Pulse Rate [Right] Respiratory Rate 14 Blood Pressure 105/84 L Blood Pressure [Right Arm] Blood Pressure Mean [Right Arm] Blood Pressure Source Automatic Cuff Blood Pressure Source [Right Arm] Blood Pressure Position Supine Blood Pressure Position [Right Arm] 02 Sat by Pulse Oximetry 96 Oxygen Delivery Method Room Air - Lab Data Lab results reviewed: Yes: I reviewed the patient's lab results. Lab Results 12/02/20 22:25: Urine Color Yellow, Urine Appearance Clear, Urine pH 6.0, Ur Specific [place] >= 1.030, Urine Protein Negative, Urine Glucose (UA) Negative, Urine Ketones Trace, Urine Blood 1+, Urine Nitrate Negative, Urine Bilirubin Negative, Urine Urobilinogen 0.2, Ur Leukocyte Esterase Negative, Urine RBC 3-5, Ur Squamous Epith Cells 10-20, Urine Mucus 4+ 12/02/20 22:30: WBC 16.5 H, RBC 5.02, Hgb 15.6, Hct 47.6 H, MCV 94.8, MCH 31.0, MCHC 32.6, RDW 13.4, Plt Count 249, MPV 8.9, Neut % (Auto) 71.1, Lymph % (Auto) 21.9, [place] % (Auto) 4.9, Eos % (Auto) 1.5, Baso % (Auto) 0.6, Neut # (Auto) 11.8 H, Lymph # (Auto) 3.6, [place] # (Auto) 0.8, Eos # (Auto) 0.3, Baso # (Auto) 0.1, Total Counted 100, Neutrophils % (Manual) 75, Band Neutrophils % 6.0, Lymphocytes % (Manual) 17, Monocytes % (Manual) 2, Platelet Estimate Normal, RBC Morphology Normal, ESR 6 12/02/20 22:30: Sodium 138, Potassium 3.9, Chloride 107, Carbon Dioxide 24, Anion Gap 10.9, BUN 7, Creatinine 0.60, Estimated Creat Clear 174, Estimated GFR 118, Est GFR ( Amer) 143, Glucose 85, Calcium 9.0, Total Bilirubin 0.4, AST 31, ALT 22, Alkaline Phosphatase 69, C-Reactive Protein 6.8 H, Total Protein 7.3, Albumin 4.4, Globulin 2.9, Albumin/Globulin Ratio 1.5, Amylase 68, Lipase 38, Procalcitonin < 0.030 Result diagrams: 12/02/20 22:30 12/02/20 22:30 Orders (Tests/Meds): ED MEDICATIONS Generic Name Dose Route Start Last Admin Trade Name Freq PRN Reason Stop Dose Admin Sodium Chloride 1,000 mls @ 999 mls/hr 12/02/20 22:30 12/02/20 22:37 Sod Chlor 0.9% 1000ml Bag IV 12/02/20 23:30 999 mls/hr .Q1H1M PHILOMENA Administration Sodium Chloride 1,000 mls @ 999 mls/hr 12/03/20 00:15 12/03/20 00:05 Sod Chlor 0.9% 1000ml Bag IV 12/03/20 01:15 999 mls/hr .Q1H1M PHILOMENA Adm
[2020-12-02 22:36] LABS: Appearance,Urine CLEAR (Clear); Blood, Urine 1+ (Negative); Color,Urine YELLOW (Yellow); Glucose,Urine (UA) Negative (Negative); Ketones,Urine TRACE (Negative); Leukocyte Esterase,Urine Negative (Negative); Microscopic, Urine URINE MICROSCOPIC (MICROSCOPIC); Nitrate,Urine Negative (Negative); Protein,Urine Negative (Negative); Specific Gravity, Urine >= 1.030 (1.005-1.030); Urobilinogen,Urine 0.2 EU/dl (0.2)
[2020-12-02 22:39] LABS: Basophils # 0.1 K/mm3 (0-0.2); Basophils % 0.6 % (0.1-2.0); Eosinophils # 0.3 K/mm3 (0.0-0.4); Eosinophils % 1.5 % (0.1-12.0); Hematocrit 47.6 % (37.0-47.0); Hemoglobin 15.6 g/dL (12.2-16.2); Lymphocytes # 3.6 K/mm3 (0.7-4.5); Lymphocytes % 21.9 % (10-50); Mean Corpuscular HGB Conc 32.6 g/dL (31.8-35.4); Mean Corpuscular Volume 94.8 fl (81-99); Mean Platelet Volume 8.9 fl (7.4-10.4); Monocytes # 0.8 K/mm3 (0.1-1.0); Monocytes % 4.9 % (1.7-9.3); Neutrophils # 11.8 K/mm3 (1.8-7.8); Neutrophils % 71.1 % (37.0-80.0); Platelet Count 249 K/mm3 (142-424); Red Blood Count 5.02 M/mm3 (4.20-5.40); Red Cell Distribution Width 13.4 % (11.5-17.5); White Blood Count 16.5 K/mm3 (4.8-10.8)
[2020-12-02 22:42] LABS: Bilirubin,Urine Negative (Negative); Mucus,Urine 4+ /lpf
[2020-12-02 22:44] LABS: MANUAL DIFFERENTIAL MANUAL DIFFERENTIAL (MANUAL DIFF)
[2020-12-02 22:52] LABS: Alanine Aminotransferase 22 U/L (12-78); Albumin Level 4.4 g/dl (3.5-5.0); Albumin/Globulin Ratio 1.5 (1.1-1.8); Alkaline Phosphatase 69 U/L (38-126); Amylase 68 U/L (30-110); Anion Gap 10.9 mEq/L (5-15); Aspartate Amino Transferase 31 U/L (14-36); Bilirubin,Total 0.4 mg/dl (0.2-1.3); Blood Urea Nitrogen 7 mg/dl (7-17); Carbon Dioxide 24 mmol/L (22.0-30.0); Chloride 107 mmol/L (98-107); Creatinine Clearance Estimated 174 mL/min (50-200); Estimated Glomerular Filt Rate 118 ml/min (>60); GFR (African American) 143 ML/MIN (>60); Globulin 2.9 g/dL (1.3-3.2); Glucose 85 mg/dl (74-100); Lipase 38 U/L (23-300); Potassium 3.9 mmoL/L (3.5-5.1); Sodium 138 mmol/L (136-145); Total Protein,Serum 7.3 g/dl (6.3-8.2)
[2020-12-02 22:54] LABS: Lymphocytes % 17 % (10-50); Monocytes % 2 % (2-9); Neutrophils % 75 % (42-76); Platelet Estimate Normal; RBC Morphology Normal; Total Cells Counted 100
[2020-12-02 22:59] LABS: C-Reactive Protein 6.8 mg/L (0-4)
[2020-12-02 23:07] LABS: Erythrocyte Sedimentation Rate 6 mm/hr (0-20)
[2020-12-02 23:17] LABS: Procalcitonin < 0.030 ng/mL (0.0-2.0)
[2020-12-02 23:30] VITALS: BP 93/59; PULSE 65; RESP 14; O2SAT 96
[2020-12-02 23:37] VITALS: BP 105/84; PULSE 66; RESP 14; O2SAT 96
[2020-12-03 01:34] VITALS: BP 110/56; PULSE 68; RESP 16; TEMP 36.9; O2SAT 96
== END 2020-12-03 01:37 | disposition home or self-care (01) ==
PROVIDERS: Emergency Provider Emergency Medicine; PCP Family Medicine
DX: K52.9 Noninfective gastroenteritis and colitis, unspecified (principal); F41.8 Other specified anxiety disorders; K21.9 Gastro-esophageal reflux disease without esophagitis; E03.9 Hypothyroidism, unspecified; F17.210 Nicotine dependence, cigarettes, uncomplicated; Z88.0 Allergy status to penicillin; Z79.899 Other long term (current) drug therapy
CPT/HCPCS: 74177; 80053; 81001; 82150; 83690; 84145; 85007; 85025; 85651; 86140; 96365; 96366; 96375; 99283; J2405; Q9967

== ENCOUNTER → 2020-12-20 10:33 | Outpatient (CLI) | payer BC, SELFPAY ==
[2020-12-20 10:37] LABS: Microscopic, Urine URINE MICROSCOPIC (MICROSCOPIC)
[2020-12-20 14:01] LABS: Appearance,Urine CLEAR (Clear); Bilirubin,Urine 1+ (Negative); Blood, Urine TRACE-I (Negative); Color,Urine YELLOW (Yellow); Glucose,Urine (UA) Negative (Negative); Ketones,Urine 1+ (Negative); Leukocyte Esterase,Urine Negative (Negative); Nitrate,Urine POSITIVE (Negative); Protein,Urine TRACE (Negative); Specific Gravity, Urine >= 1.030 (1.005-1.030); Urobilinogen,Urine 0.2 EU/dl (0.2)
[2020-12-20 14:33] LABS: Albumin Level 4.3 g/dl (3.5-5.0); Anion Gap 12.1 mEq/L (5-15); Blood Urea Nitrogen 5 mg/dl (7-17); Calcium 9.4 mg/dl (8.4-10.2); Carbon Dioxide 25 mmol/L (22.0-30.0); Chloride 107 mmol/L (98-107); Estimated Glomerular Filt Rate 118 ml/min (>60); GFR (African American) 143 ML/MIN (>60); Glucose 87 mg/dl (74-100); Phosphorous 3.7 mg/dl (2.5-4.5); Potassium 4.1 mmoL/L (3.5-5.1); Sodium 140 mmol/L (136-145)
[2020-12-20 14:43] LABS: Bacteria,Urine 2+ /lpf; Squamous Epithelial Cell,Urine Occasional #/hpf (0-5)
[2020-12-20 21:32] LABS: Creatinine,Urine Random 517 mg/dL (Not Estab.)
== END ==
PROVIDERS: Visit Provider Internal Medicine Nephrology
DX: R80.9 Proteinuria, unspecified (principal); L60.9 Nail disorder, unspecified
CPT/HCPCS: 36415; 80069; 81001; 82570; 84155; 87086

== ENCOUNTER → 2021-01-04 13:34 | Outpatient (CLI) | payer BC, SELFPAY ==
--- NOTE | 2021-01-04 13:37 | MM_ITS ---
PROCEDURE: MM DIG MAMM BI DX W/CAD Digital Breast Tomosynthesis Included CLINICAL INDICATION: RT BREAST MASS,FIBROCYSTIC BREAST COMPARISON: US US BREAST LT COMPLETE from 01/04/2021 US US BREAST RT COMPLETE from 01/04/2021 TECHNIQUE: Standard CC and MLO images and 3D Tomosynthesis was obtained. R2 CAD reviewed. Bilateral breast ultrasound FINDINGS: An average fibroglandular tissue. No malignant appearing mass or malignant-appearing microcalcification. In the left breast medially on the CC view there are 2 small adjacent nodular densities at approximately 3 mm 8 mm posterior to the nipple. These do not completely disappear on the spot view. The tadeo image however suggest that one of these nodules may be overlying fibroglandular tissue. Right breast ultrasound: The palpable area which is in the axillary region represents a complex 14 x 5 by 9 mm nodule which is mostly hypoechoic wider than tall. No mammographic correlate. The nodule may be out of the field of the mammogram. This may represent a complicated sebaceous cyst however the nodule appears somewhat solid. Left breast ultrasound: Unremarkable IMPRESSION: BI-RAD Category: 3 Probably Benign Finding Short Term Follow-up FOLLOW-UP: Suggest ultrasound-guided FNA of the axillary hypoechoic nodule. This is not within the breast. Recommend six-month follow-up of the left breast regarding probably benign nodules in the medial left breast. (A letter has been sent to the patient regarding results of the study.) Dictated by: Oral Ash MD 01/06/2021 11:46 Oral Ash MD in [place] 01/06/2021 11:46
== END ==
PROVIDERS: PCP Family Medicine; Visit Provider Nurse Practitioner Family
DX: N63.31 Unspecified lump in axillary tail of the right breast (principal); N60.11 Diffuse cystic mastopathy of right breast; N60.12 Diffuse cystic mastopathy of left breast; Z80.3 Family history of malignant neoplasm of breast
CPT/HCPCS: 76641; 77062; 77066; G0279

== ENCOUNTER → 2021-01-19 11:53 | Outpatient (CLI) | payer BC, SELFPAY ==
--- NOTE | 2021-01-19 12:04 | US_ITS ---
PROCEDURE: US FNA BREAST CLINICAL INDICATION: RT AXXILLARY HYPOECHOIC NODULE COMPARISON: US US BREAST LT COMPLETE from 01/04/2021 FINDINGS: Following obtaining informed consent and time-out procedure under aseptic conditions and local anesthesia with 1 percent buffered lidocaine with ultrasound guidance, a 21 gauge needle was inserted into the subcutaneous nodule in the right axillary region and fine needle aspiration was performed. Patient tolerated the procedure well without evidence of immediate complications and left radiology suite in stable condition. Cytology: Atypical. Please see cytology report. IMPRESSION: Uneventful ultrasound-guided FNA of the right breast. Please see cytology report. Dictated by: Oral Ash MD 01/31/2021 09:39 Oral Ash MD in [place] 01/31/2021 09:39
== END ==
PROVIDERS: PCP Family Medicine; Visit Provider Nurse Practitioner Family
DX: N63.31 Unspecified lump in axillary tail of the right breast (principal)
CPT/HCPCS: 10005

== ENCOUNTER → 2021-03-08 11:01 | Outpatient (CLI) | payer BC, SELFPAY ==
[2021-03-08 11:23] LABS: Urine Pregnancy, HCG Qual. Negative (Negative)
[2021-03-08 11:36] LABS: Basophils # 0.1 K/mm3 (0-0.2); Basophils % 0.6 % (0.1-2.0); Eosinophils # 0.1 K/mm3 (0.0-0.4); Eosinophils % 1.4 % (0.1-12.0); Hematocrit 45.3 % (37.0-47.0); Hemoglobin 15.3 g/dL (12.2-16.2); Lymphocytes # 2.8 K/mm3 (0.7-4.5); Lymphocytes % 27.7 % (10-50); Mean Corpuscular HGB Conc 33.8 g/dL (31.8-35.4); Mean Corpuscular Hemoglobin 30.7 pg (27.0-31.2); Mean Corpuscular Volume 90.7 fl (81-99); Mean Platelet Volume 8.7 fl (7.4-10.4); Monocytes # 0.6 K/mm3 (0.1-1.0); Monocytes % 5.4 % (1.7-9.3); Neutrophils # 6.6 K/mm3 (1.8-7.8); Neutrophils % 64.9 % (37.0-80.0); Platelet Count 231 K/mm3 (142-424); Red Blood Count 4.99 M/mm3 (4.20-5.40); White Blood Count 10.2 K/mm3 (4.8-10.8)
[2021-03-08 12:34] LABS: Anion Gap 11.9 mEq/L (5-15); Blood Urea Nitrogen 3 mg/dl (7-17); Calcium 8.9 mg/dl (8.4-10.2); Carbon Dioxide 26 mmol/L (22.0-30.0); Chloride 104 mmol/L (98-107); Estimated Glomerular Filt Rate 118 ml/min (>60); GFR (African American) 143 ML/MIN (>60); Glucose 84 mg/dl (74-100); Potassium 3.9 mmoL/L (3.5-5.1); Sodium 138 mmol/L (136-145)
== END ==
PROVIDERS: Visit Provider Surgery
DX: Z01.812 Encounter for preprocedural laboratory examination (principal); Z11.52 Encounter for screening for COVID-19; L72.3 Sebaceous cyst
CPT/HCPCS: 36415; 80048; 81025; 85025; U0003

== ENCOUNTER 2021-03-10 07:41 | Day surgery (SDC) | payer BC, SELFPAY ==
[2021-03-06 12:44] VITALS: BMI 30.8
[2021-03-10] VITALS (13 sets, daily range): BP systolic 89–131; BP diastolic 47–80; PULSE 62–78; RESP 14–18; TEMP 36.1–36.4; O2SAT 91–98
--- NOTE | 2021-03-10 09:32 | HMH.ANESCL ---
[facility] Anesthesia Checklist - Patient Identification Patient Identification: Arm Band - Structural Data Admitted From: Home Planned Operative Procedure/s: Excision of axillary cyst Consent for Planned Operative Procedure(s) Verified: Yes - NPO Status Verified Time NPO: 00:00 - Additional verifications Anesthesia Reactions: No Hx Blood Transfusions: No Blood Transfusion Reaction: No - Cardiovascular Assessment Heart Sounds: S1 & S2 Pulse Strength: Baseline Pulse Rhythm: Regular Peripheral Edema: No - Airway Assessment C-Spine Mobility Assessed: Yes TMJ Mobility Assessed: Yes Dentition: Edentulous - Neurological Assessment Level of Consciousness: Awake Hx Seizures: No Numbness or tingling in extremities: No - Anesthesia Plan Anesthesia Risk discussed: Yes Anesthesia Plan: Verified ASA Class: III Anesthesia Type: General [facility] History I have reviewed the patient's past medical history: Yes Medical History: Reports:: Anxiety, Arrhythmia (WPWs), Asthma, Congenital Heart Disease, Depression, Gastroesophageal Reflux Disease(GERD), Migraine, Renal Disease, Valvular Heart Disease (Regurg) Denies:: Cancer, Diabetes Mellitus Type 1, Diabetes Mellitus Type 2, Internal Pacemaker, MRSA, Seizures *Have you ever received a pneumonia vaccine?: No *Have you received a flu vaccine this season?: No Other Medical History: Reports: Hypothyroidism, Other (Chiari malformation, occipital neuralgia, mal patellar syndrome). Denies: Blood Transfusion Reaction Anesthesia experience/problems:: None Laterality Cases: Right: Arthroscopy Knee, Bilateral: Tonsillectomy Other Surgeries: Yes: Cholecystectomy, Hysterectomy-Partial, Other. No: Pacemaker Amputation: No Fractures: No - *Social History Last grade of school completed: High school graduate Smoking Status: Current every day smoker Tobacco Type: cigarettes # Packs/Day (cigarettes): 1 Alcohol Intake: never Alcohol Intake Frequency:: holidays/special occasions only Substance Use Type: denies use *Occupational Status:: disabled Housing: house Household Members: significant other, family *Travel in the last 8 weeks: None - Psychiatric History Pschychiatric History:: Reports:: Anxiety, Depression Family Hx:: Cancer, Diabetes, Heart Attack, Hyperlipidemia, Hypertension, Kidney Disease, Stroke, Thyroid Disorder, Alcoholism, Mental illness, Asthma, Coronary Artery Disease [employer]WING [employer]ACH[employer] history: Spontaneous
--- NOTE | 2021-03-10 11:22 | HMH.OPNOTE ---
Date of procedure: 03/10/21 Pre-op Diagnosis:: Right axillary cyst with recent abscess Post-op Diagnosis:: Same Procedure performed:: Excision of recently-abscessed right axillary cyst Surgeon:: Wade Nunn MD Polish Compounder(s):: Coty SENIOR CYBER INTELLIGENCE ANALYST:: Keyur Leigh Anesthesia: LMA Estimated blood loss (mL): 5 Operative findings:: Inflamed cyst with no sign of active infection Operative note:: After informed consent was obtained the patient was taken to the operating room and placed in the supine position. General anesthesia with laryngeal mask airway was achieved. The right axilla was prepped and draped in a sterile fashion. After infiltration local anesthetic an elliptical incision was made around the lesion. The deep subcutaneous tissue was sharply dissected. The lesion was excised in toto and passed off for pathologic evaluation. The inflamed tissue projected into the subcutaneous tissue. Electrocautery was utilized to achieve hemostasis. Skin was reapproximated with interrupted 4-0 nylon. Dressings were applied and the patient was transferred recovery in stable condition after removal of her laryngeal mask airway. Condition: stable Disposition: PACU Specimens:: Right axillary cyst Complications:: No immediate
--- NOTE | 2021-03-10 11:25 | P.PN_ITS ---
[facility] Anesthesia Record Part I Intake, IV Amount: 400 Estimated blood loss (mL): 0 Urine output (mL): 0 Blood Pressure: 89/47 SaO2: 91 Pulse Rate: 62 Respiratory Rate: 18 Temperature: 97.4 F Patient is:: Drowsy, Oral/Nasal airway Stable to PACU at:: 11:23
--- NOTE | 2021-03-10 12:29 | ECG_ITS ---
APPROVED REPORT Exam: Resting ECG HR:64 bpm ECG Measurements Heart Rate 64 AXES NE 128 P 48 QRSd 84 QRS 30 QT 410 T 16 QTc 422 Conclusion Normal sinus rhythm Normal ECG Electronically signed by : Addison Da Silva, 03/10/2021 15:57:24
--- NOTE | 2021-03-10 13:34 | SUR.PHASEII ---
PT LEFT DISCHARGE INSTRUCTIONS WHEN LEFT HOSPITAL. CALLED PT TO REMIND OF FOLLOW UP AND REVIEWED ALL INSTRUCTIONS AGAIN OVER THE PHONE AND PT VERBALIZED UNDERSTANDING OF ALL.
--- NOTE | 2021-03-13 08:47 | HMH.ANESII ---
[facility] Anesthesia Record Part II Discharge Time: 11:53 Destination: Surgical Day Care (OP Surgery) PACU nurse assessment reviewed?: Yes Patient Condition:: Good Anesthesia Complications:: None Swallowing reflex intact?: Yes Cyanosis?: No Blood Pressure: 106/66 Pulse Rate: 66 Temperature: 97.5 F Mental Status: Alert & Oriented Pain level:: 5 Nausea and/or vomitting:: None Intake, IV Amount: 0
[2021-03-13 08:48] VITALS: BP 106/66; PULSE 66; TEMP 36.4
== END 2021-03-10 12:56 | disposition home or self-care (01) ==
LOC: OR 07:44
PROVIDERS: PCP Family Medicine; Visit Provider Surgery
PROC: (CPT 11400; principal; 2021-03-10 08:30)
DX: L72.3 Sebaceous cyst (principal); L02.419 Cutaneous abscess of limb, unspecified; J45.909 Unspecified asthma, uncomplicated; K21.9 Gastro-esophageal reflux disease without esophagitis; F41.9 Anxiety disorder, unspecified; F32.9 Major depressive disorder, single episode, unspecified; G43.909 Migraine, unspecified, not intractable, without status migrainosus; N28.9 Disorder of kidney and ureter, unspecified; E03.9 Hypothyroidism, unspecified; Z72.0 Tobacco use; Z90.49 Acquired absence of other specified parts of digestive tract; Z88.0 Allergy status to penicillin
CPT/HCPCS: 11400; 93005; 96374; J2405

== ENCOUNTER → 2021-04-13 08:33 | Outpatient (CLI) | payer BC, SELFPAY ==
--- NOTE | 2021-04-13 08:40 | MR_ITS ---
PROCEDURE: MR HEAD/BRAIN WO/W CON CLINICAL INDICATION: PAPILLEDEMA COMPARISON: No exams were available for comparison TECHNIQUE: Routine multiplanar multi echo sequences are performed without and with gadolinium enhancement. FINDINGS: No midline shift, mass effect, or intracranial hemorrhage is evident. The cerebellopontine angles, cerebellum, and brainstem have an unremarkable appearance. No enhancing lesions are evident. There is a prominent cavum septum pellucidum. The lateral ventricles are very slightly prominent in accordance with patient's age with rounding off of both the anterior horns and minimal prominence of the temporal horns. A small cystic areas present in the posterior aspect of the pituitary centrally at 3-4 mm. There is mild cerebellar tonsillar ectopia of approximately 6 mm. The 4th ventricle has an unremarkable appearance. No mastoid effusion or sinus air-fluid level. IMPRESSION: 1. Prominent cavum septum pellucidum with mild prominence of the lateral ventricles. This is of questionable clinical significance. Correlation with clinical parameters are needed. The 3rd and 4th ventricles are normal in size. 2. 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 3-4 mm cystic lesion of the pituitary posteriorly. Consider six-month follow-up of the pituitary gland without and with contrast to confirm short term stability Dictated by: Oral Ash MD 04/13/2021 15:10 Oral Ash MD in [place] 04/13/2021 15:10
== END ==
PROVIDERS: PCP Family Medicine; Visit Provider Psychiatry & Neurology Neurology
DX: H47.10 Unspecified papilledema (principal)
CPT/HCPCS: 70553; A9576

== ENCOUNTER → 2021-06-09 12:54 | Outpatient (CLI) | payer BC, SELFPAY ==
--- NOTE | 2021-06-09 12:57 | XR_ITS ---
PROCEDURE: XR CHEST 2V CLINICAL HISTORY: COUGH COMPARISON: CR CXR1 CHEST-PORTABLE from 04/24/[address] CHEST W/O CONTRAST from 05/31/2017 CR CXR2V XR chest 2V from 10/25/2018 CR XR CHEST 2V from 03/30/[address] ABDOMEN PELVIS W CON from 12/02/2020 FINDINGS: The cardiomediastinal silhouette and pulmonary vascularity are within normal limits. There is mild prominence of the left hilum not significantly changed. Calcified nodes are present in this region on older CT of 05/31/2017. Lungs are clear bilaterally. No acute bony abnormalities. IMPRESSION: No acute findings. Dictated by: Oral Ash MD 06/09/2021 13:40 Oral Ash MD in [place] 06/09/2021 13:40
== END ==
PROVIDERS: PCP Nurse Practitioner; Visit Provider Nurse Practitioner
DX: R05 Cough (principal)
CPT/HCPCS: 71046

== ENCOUNTER → 2021-06-20 14:08 | Outpatient (CLI) | payer BC, SELFPAY ==
--- NOTE | 2021-06-20 14:11 | MM_ITS ---
PROCEDURE: MM DIG MAMM DX UNILAT LT CAD Digital Breast Tomosynthesis Included CLINICAL INDICATION: 6mth f/u lt breast density COMPARISON: MG MM DIG MAMM BI DX W/CAD from 01/04/2021 TECHNIQUE: Standard CC and MLO images and 3D Tomosynthesis was obtained. R2 CAD reviewed. FINDINGS: The breast is composed primarily of fat with minimal scattered fibroglandular densities throughout. . The 2 tiny nodular density seen on the previous mammogram 01/04/2021 are not definitely seen on the current study. There are no suspicious microcalcifications IMPRESSION: Negative left mammogram, recommend the patient start normal screening at the age of 41 BI-RAD Category: 1 Negative FOLLOW-UP: 1YR 1 Year Follow-up beginning at the age of 41 (A letter has been sent to the patient regarding results of the study.) Dictated by: Dr. Doroteo Parker MD 06/23/2021 09:10 Dr. Doroteo Parker MD in [place] 06/23/2021 09:10
== END ==
PROVIDERS: PCP Nurse Practitioner; Visit Provider Nurse Practitioner
DX: R92.8 Other abnormal and inconclusive findings on diagnostic imaging of breast (principal)
CPT/HCPCS: 77061; 77065; G0279

== ENCOUNTER → 2021-08-28 12:29 | Outpatient (CLI) | payer BC, SELFPAY ==
[2021-08-28 13:50] VITALS: PULSE 61; PULSE 63
--- NOTE | 2021-08-28 14:41 | XR_ITS ---
PROCEDURE: XR CHEST 2V CLINICAL HISTORY: SOB COMPARISON: CT [facility] CT CHEST W/O CONTRAST from 05/31/2017 CR CXR2V XR chest 2V from 10/25/2018 CR XR CHEST 2V from 03/30/2020 CR XR CHEST 2V from 06/09/2021 FINDINGS: The cardiomediastinal silhouette and pulmonary vascularity are within normal limits. The lungs are clear without infiltrates, suspicious nodules, or pleural effusions. No acute bony abnormalities. IMPRESSION: No acute findings. Dictated by: Oral Ash MD 08/28/2021 16:27 Oral Ash MD in [place] 08/28/2021 16:27
[2021-08-28 15:04] LABS: Basophils # 0.1 K/mm3 (0-0.2); Basophils % 0.7 % (0.1-2.0); Eosinophils # 0.2 K/mm3 (0.0-0.4); Eosinophils % 1.6 % (0.1-12.0); Hematocrit 46.4 % (37.0-47.0); Lymphocytes # 3.4 K/mm3 (0.7-4.5); Lymphocytes % 25.3 % (10-50); Mean Corpuscular HGB Conc 32.3 g/dL (31.8-35.4); Mean Corpuscular Hemoglobin 31.3 pg (27.0-31.2); Mean Platelet Volume 8.6 fl (7.4-10.4); Monocytes # 0.6 K/mm3 (0.1-1.0); Monocytes % 4.6 % (1.7-9.3); Neutrophils # 9.1 K/mm3 (1.8-7.8); Neutrophils % 67.7 % (37.0-80.0); Platelet Count 274 K/mm3 (142-424); Red Blood Count 4.78 M/mm3 (4.20-5.40); Red Cell Distribution Width 12.5 % (11.5-17.5); White Blood Count 13.4 K/mm3 (4.8-10.8)
[2021-09-01 04:09] LABS: D001-IgE D pteronyssinus 1.24 kU/L (Class II); D002-IgE D farinae 0.38 kU/L (Class I); E001-IgE Cat Dander <0.10 kU/L (Class 0); E005-IgE Dog Dander <0.10 kU/L (Class 0); E072-IgE Mouse Urine <0.10 kU/L (Class 0); G002-IgE Bermuda Grass <0.10 kU/L (Class 0); G006-IgE Timothy Grass <0.10 kU/L (Class 0); I006-IgE Cockroach, German <0.10 kU/L (Class 0); Immunoglobulin E, Total 29 IU/mL (6-495); M001-IgE Penicillium chrysogen <0.10 kU/L (Class 0); M002-IgE Cladosporium herbarum <0.10 kU/L (Class 0); M003-IgE Aspergillus fumigatus <0.10 kU/L (Class 0); M006-IgE Alternaria alternata <0.10 kU/L (Class 0); T001-IgE Maple/Box Elder <0.10 kU/L (Class 0); T003-IgE Common Silver Birch <0.10 kU/L (Class 0); T006-IgE Cedar, Mountain <0.10 kU/L (Class 0); T007-IgE Oak, White <0.10 kU/L (Class 0); T008-IgE Elm, American <0.10 kU/L (Class 0); T010-IgE Walnut <0.10 kU/L (Class 0); T011-IgE Maple Leaf Sycamore <0.10 kU/L (Class 0); T014-IgE Cottonwood <0.10 kU/L (Class 0); T015-IgE Ash, White <0.10 kU/L (Class 0); T022-IgE Pecan, Hickory <0.10 kU/L (Class 0); T070-IgE White Mulberry <0.10 kU/L (Class 0); W001-IgE Ragweed, Short <0.10 kU/L (Class 0); W011-IgE Thistle, Russian <0.10 kU/L (Class 0); W014-IgE Pigweed, Common <0.10 kU/L (Class 0); W018-IgE Sheep Sorrel <0.10 kU/L (Class 0)
[2021-09-02 00:06] LABS: Aspergillus flavus Negative (Neg:<1:1); Aspergillus fumigatus Negative (Neg:<1:1); Aspergillus niger Negative (Neg:<1:1); Blastomyces Antibody Negative (Neg:<1:1)
== END ==
PROVIDERS: PCP Nurse Practitioner; Visit Provider Internal Medicine Pulmonary Disease
DX: R06.02 Shortness of breath (principal); J84.10 Pulmonary fibrosis, unspecified; J45.909 Unspecified asthma, uncomplicated
CPT/HCPCS: 36415; 71046; 82785; 85025; 86003; 86606; 86612; 94060; 94640; 94727; 94729

== ENCOUNTER → 2021-11-16 10:51 | Outpatient (CLI) | payer BC, SELFPAY ==
[2021-11-17 08:15] LABS: HIV Screen 4th Generation wRfx Non Reactive (Non Reactive)
[2021-11-17 09:20] LABS: HSV 1 IgG, Type Spec <0.91 index (0.00-0.90); HSV 2 IgG, Type Spec <0.91 index (0.00-0.90)
[2021-11-17 11:12] LABS: Hep A Ab, IgM Negative (Negative); Hepatitis B Core Antibody IgM Negative (Negative); Hepatitis B Surface Antigen Negative (Negative); Hepatitis C Antibody 0.1 s/co ratio (0.0-0.9); Rapid Plasma Reagin Ab Titer Non Reactive (NonRea<1:1)
[2021-11-17 22:09] LABS: Neisseria gonorrhoeae, NAA Negative (Negative)
== END ==
PROVIDERS: Visit Provider Obstetrics & Gynecology
DX: Z20.2 Contact with and (suspected) exposure to infections with a predominantly sexual mode of transmission (principal)
CPT/HCPCS: 36415; 80074; 86592; 86695; 86703; 86790; 87491; 87591; G0432

== ENCOUNTER 2021-12-02 10:14 | Emergency (ER) | payer BC, SELFPAY ==
[2021-12-02 10:20] VITALS: BP 109/70; PULSE 70; RESP 19; TEMP 36.8; O2SAT 98; BMI 26.4
--- NOTE | 2021-12-02 10:34 | HMH.EDUTC ---
[facility] [place] Disposition Clinical Impression: Low back pain with sciatica Qualifiers: Chronicity: unspecified Back pain laterality: right Sciatica laterality: sciatica of right side Qualified Code(s): M54.41 - Lumbago with sciatica, right side Disposition: Home, Self-Care Condition on Discharge: Good Instructions: DI for Sciatica, DI for Back Pain With Sciatica, Cyclobenzaprine, Methylprednisolone, Etodolac Additional Instructions: *\Etodolac every 8 hours with meal as needed for pain/inflammation *Remember you had a Toradol shot in the clinic today, which is similar to Etodolac so do not start until 10pm tonight *Not additional anti-inflammatory like Ibuprofen, motrin, aleve, advil with the above amount of Etodolac You can still take Tylenol every 4 hours as needed if you need something else for pain *Ice 20 minutes every 2 hours for the first 48 hours after the initial injury followed by moist heat every 20 minutes 3-4 times a day to affected area *Muscle relaxer every 8 hours as needed for muscle spasms but remember, it WILL cause drowsiness You cannot take it and drive, operate machinery or care for small children. *Keep this area active, no movement leads to more stiffness, However take it easy and avoid heavy lifting pushing or pulling *Follow up with you family doctor if no improvement for further treatment Start Oral steroids tomorrow Return if needed Straight to ER if any life threatening symptoms Prescriptions: Etodolac 200 mg PO Q8HP PRN #20 cap PRN Reason: Moderate Pain Transmission Status: Received by [facility] Cyclobenzaprine HCl [Flexeril 10mg tablet] 10 mg PO Q8HP PRN #15 tab PRN Reason: Muscle Spasm Transmission Status: Received by [facility] methylPREDNISolone [Medrol 4mg tab] 4 mg PO DIRECTED #21 tab Transmission Status: Received by [facility] Referrals: Itzel Charlton APRN [Primary Care Provider] - As needed Forms: Work/School Release Time of Disposition: 10:54 Medical Decision Making - Sumanth Inquiry Pt receiving controlled substance: No Sumanth was queried for this patient: No Vital Signs: 12/02/21 10:20 12/02/21 10:47 Temperature 98.2 F 98.2 F Temperature Source Oral Pulse Rate 70 Pulse Rate [Right Brachial] 70 Respiratory Rate 19 19 Blood Pressure 109/70 L Blood Pressure [Right Arm] 109/70 L Blood Pressure Mean [Right Arm] 83 Blood Pressure Source [Right Arm] Automatic Cuff Blood Pressure Position [Right Arm] Sitting 02 Sat by Pulse Oximetry 98 Oxygen Delivery Method Room Air Orders (Tests/Meds): ED MEDICATIONS Discontinued Medications Generic Name Dose Route Start Last Admin Trade Name Shreyas PRN Reason Stop Dose Admin Ketorolac Tromethamine 60 mg 12/02/21 10:36 12/02/21 10:47 Ketorolac 60mg/2ml Vial IM 12/02/21 10:37 60 mg ONCE ONE Administration Methylprednisolone Sodium Succinate 125 mg 12/02/21 10:36 12/02/21 10:47 Methylprednisolone Sod Succ 125mg Vial IM 12/02/21 10:37 125 mg ONCE ONE Administration Medical Decision Narrative: patient reports historectomy 6yrs ago [facility] [place] HPI - General Stated complaint: back and right leg pain, no accident Time Seen by Provider: 12/02/21 10:34 Mode of Arrival: Ambulatory Source of Information: Patient Limitations: No Limitations Description of Symptoms (Recalled from Triage Doc. by RN): PATIENT C/O RIGHT LOWER BACK PAIN THAT RADIATES DOWN RIGHT LEG X 2 DAYS HEENT Symptoms (Recalled from RN notes): No Resp Symptoms (Recalled from RN notes): No Skin Symptoms (Recalled from RN notes): No MS Symptoms (Recalled from RN notes): Yes Functional Status (Recalled from RN notes): WNL - History of Present Illness Provider Complaint: Patient states that she has a history of back issues, States that a couple days ago she started having pain across her lower back area and radiates into right leg Denies known injury State that pain is worse when she lays or sits on that side Sta
[2021-12-02 10:47] VITALS: BP 109/70; PULSE 70; RESP 19; TEMP 36.8; O2SAT 98
== END 2021-12-02 11:07 | disposition home or self-care (01) ==
PROVIDERS: Emergency Provider Nurse Practitioner; PCP Nurse Practitioner
DX: M54.41 Lumbago with sciatica, right side (principal); M62.830 Muscle spasm of back; F41.8 Other specified anxiety disorders; K21.9 Gastro-esophageal reflux disease without esophagitis; J45.909 Unspecified asthma, uncomplicated; E03.9 Hypothyroidism, unspecified
CPT/HCPCS: 96372; 99213; G0463

== ENCOUNTER → 2022-01-13 08:08 | Outpatient (CLI) | payer BC, SELFPAY ==
--- NOTE | 2022-01-13 08:11 | MR_ITS ---
FINAL REPORT CLINICAL HISTORY: PITUITARY CYST, Arnold-Chiari type 1, 6 month follow up. no new changes. COMPARISON: 04/13/2021 FINDINGS: Multiplanar MR imaging of the brain was performed without and with contrast. There is no evidence of intracranial hemorrhage. No abnormal extra-axial fluid collection is seen. 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 Again identified is low-lying cerebellar tonsils measuring 6 mm. There is a 4 mm cystic lesion in the posterior pituitary. There is no evidence of shift of the midline structures. No area of abnormal restricted diffusion is identified. No abnormal contrast enhancement is seen. Normal major vessel vascular flow voids are noted. 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 Low lying cerebellar tonsils measures 6 mm, stable. 4 mm cystic lesion in the posterior pituitary. Reviewed, Interpreted and Dictated by Osvaldo Mays III, MD Transcribed by Savannah Vickers Authenticated by Osvaldo Mays III, MD on 01/15/2022 08:04:22 AM [facility]
== END ==
PROVIDERS: PCP Nurse Practitioner; Visit Provider Physician Assistant Medical
DX: E23.6 Other disorders of pituitary gland (principal)
CPT/HCPCS: 70553; A9576

== ENCOUNTER → 2022-01-16 11:16 | Outpatient (CLI) | payer BC, SELFPAY ==
[2022-01-16 11:43] LABS: Microscopic, Urine URINE MICROSCOPIC (MICROSCOPIC)
[2022-01-16 12:32] LABS: Appearance,Urine CLEAR (Clear); Blood, Urine TRACE-I (Negative); Color,Urine YELLOW (Yellow); Glucose,Urine (UA) Negative (Negative); Ketones,Urine TRACE (Negative); Leukocyte Esterase,Urine Negative (Negative); Nitrate,Urine Negative (Negative); Protein,Urine Negative (Negative); Urobilinogen,Urine 0.2 EU/dl (0.2)
[2022-01-16 12:41] LABS: Basophils # 0.2 K/mm3 (0-0.2); Basophils % 1.9 % (0.1-2.0); Eosinophils # 0.2 K/mm3 (0.0-0.4); Eosinophils % 1.7 % (0.1-12.0); Hematocrit 46.2 % (37.0-47.0); Hemoglobin 15.6 g/dL (12.2-16.2); Lymphocytes # 3.3 K/mm3 (0.7-4.5); Lymphocytes % 35.9 % (10-50); Mean Corpuscular HGB Conc 33.7 g/dL (31.8-35.4); Mean Corpuscular Hemoglobin 32.7 pg (27.0-31.2); Mean Platelet Volume 9.1 fl (7.4-10.4); Monocytes # 0.7 K/mm3 (0.1-1.0); Neutrophils # 4.8 K/mm3 (1.8-7.8); Neutrophils % 52.5 % (37.0-80.0); Platelet Count 318 K/mm3 (142-424); Red Blood Count 4.76 M/mm3 (4.20-5.40); Red Cell Distribution Width 13.6 % (11.5-17.5); White Blood Count 9.2 K/mm3 (4.8-10.8)
[2022-01-16 12:49] LABS: Bilirubin,Urine 1+ (Negative)
[2022-01-16 12:53] LABS: Chol/HDL Ratio 3.3 (1-3.5); Cholesterol 218 mg/dl (140-200); HDL Cholesterol 66 mg/dl (40-60); Triglycerides 86 mg/dl (30-150); VLDL Cholesterol 17 mg/dL (0-40)
[2022-01-16 12:55] LABS: Alanine Aminotransferase 11 U/L (12-78); Albumin Level 4.1 g/dl (3.5-5.0); Albumin/Globulin Ratio 1.8 (1.1-1.8); Alkaline Phosphatase 65 U/L (38-126); Anion Gap 8.7 mEq/L (5-15); Aspartate Amino Transferase 19 U/L (14-36); Bilirubin,Total 0.6 mg/dl (0.2-1.3); Blood Urea Nitrogen 9 mg/dl (7-17); Calcium 9.2 mg/dl (8.4-10.2); Carbon Dioxide 26 mmol/L (22.0-30.0); Chloride 106 mmol/L (98-107); Estimated Glomerular Filt Rate 117 ml/min (>60); GFR (African American) 142 ML/MIN (>60); Globulin 2.3 g/dL (1.3-3.2); Glucose 83 mg/dl (74-100); Potassium 3.7 mmoL/L (3.5-5.1); Sodium 137 mmol/L (136-145); Total Protein,Serum 6.4 g/dl (6.3-8.2)
[2022-01-16 13:04] LABS: Direct LDL Cholesterol 132.05 mg/dL (100-129)
[2022-01-16 13:26] LABS: Thyroid Stimulating Hormone 2.81 uIU/mL (0.465-4.68)
[2022-01-16 13:30] LABS: Ferritin 52.4 ng/ml (6.24-137)
== END ==
PROVIDERS: PCP Internal Medicine Nephrology; Visit Provider Nurse Practitioner Family
DX: R06.02 Shortness of breath (principal); R07.2 Precordial pain
CPT/HCPCS: 36415; 80053; 80061; 81001; 82728; 84443; 85025

== ENCOUNTER 2022-02-13 12:24 | Emergency (ER) | payer BC, SELFPAY ==
[2022-02-13 12:25] VITALS: BP 118/73; PULSE 78; RESP 16; TEMP 36.6; O2SAT 99; BMI 28.3
--- NOTE | 2022-02-13 13:09 | PC.NURSE ---
ED MD at
--- NOTE | 2022-02-13 13:14 | HMH.EDGENADL ---
ED Disposition Clinical Impression: Low back pain Qualifiers: Chronicity: acute Back pain laterality: bilateral Sciatica presence: without sciatica Qualified Code(s): M54.50 - Low back pain, unspecified Disposition: Home, Self-Care Condition on Discharge: Good Instructions: DI for Low Back Pain Additional Instructions: Toradol as prescribed. Additional instructions for BACK PAIN: See your physician as soon as possible for further evaluation. Return immediately if back pain becomes intolerable, or if fever, numbness or weakness of your legs, loss of control of your bowels or bladder. Prescriptions: Ketorolac Tromethamine [Toradol 10mg tablet] 10 mg PO Q6HP PRN #8 tab PRN Reason: Moderate Pain Transmission Status: Pending to [facility] Referrals: Itzel Charlton APRN [Primary Care Provider] - - Critical Care Critical Care Time: No Attestation: On 02/13/22, the high probability of a clinically significant, sudden or life threatening deterioration of the following system(s) required my full and direct attention, intervention and personal management. The time I documented below is in addition to time spent performing reported procedures but includes the following listed in this critical care notation. Medical Decision Making - Medical Records Medical records reviewed: Yes: I reviewed the patient's medical records. MR Comment: Reviewed [facility] note from 12/02/2021 for sciatica - Sumanth Inquiry Pt receiving controlled substance: No Vital Signs: 02/13/22 12:25 02/13/22 14:23 02/13/22 14:30 Temperature 98 F Temperature Source Oral Pulse Rate 64 61 Pulse Rate [Radial] 78 Respiratory Rate 16 Blood Pressure 102/45 L 96/53 L Blood Pressure [Right Arm] 118/73 Blood Pressure Mean 62 67 Blood Pressure Mean [Right Arm] 88 Blood Pressure Position [Right Arm] Sitting 02 Sat by Pulse Oximetry 99 100 100 Oxygen Delivery Method Room Air - Lab Data Lab Results 02/13/22 13:05: Urine Color Yellow, Urine Appearance Clear, Urine pH 6.5, Ur Specific [place] 1.020, Urine Protein Negative, Urine Glucose (UA) Negative, Urine Ketones Trace, Urine Blood Negative, Urine Nitrate Negative, Urine Bilirubin 1+ A, Urine Urobilinogen 1.0, Ur Leukocyte Esterase Negative, Urine RBC None, Urine WBC None, Ur Squamous Epith Cells 5-10, Urine Bacteria Trace 02/13/22 14:15: WBC 9.8, RBC 4.76, Hgb 15.3, Hct 47.1 H, MCV 99.1 H, MCH 32.2 H, MCHC 32.5, RDW 13.5, Plt Count 299, MPV 8.8, Neut % (Auto) 60.0, Lymph % (Auto) 28.0, [place] % (Auto) 7.2, Eos % (Auto) 2.2, Baso % (Auto) 2.5 H, Neut # (Auto) 5.9, Lymph # (Auto) 2.8, [place] # (Auto) 0.7, Eos # (Auto) 0.2, Baso # (Auto) 0.3 H 02/13/22 14:15: Sodium 142, Potassium 3.6, Chloride 106, Carbon Dioxide 29, Anion Gap 10.6, BUN 8, Creatinine 0.60, Estimated Creat Clear 142, Estimated GFR 117, Est GFR ( Amer) 142, Glucose 79, Calcium 9.0, Total Bilirubin < 0.1 L, AST 25, ALT 14, Alkaline Phosphatase 72, C-Reactive Protein 7.9 H, Total Protein 7.0, Albumin 4.3, Globulin 2.7, Albumin/Globulin Ratio 1.6, Lipase 54 Result diagrams: 02/13/22 14:15 02/13/22 14:15 Orders (Tests/Meds): ED MEDICATIONS Discontinued Medications Generic Name Dose Route Start Last Admin Trade Name Freq PRN Reason Stop Dose Admin Ketorolac Tromethamine 30 mg 02/13/22 15:07 Ketorolac 30mg/Ml Vial IV 02/13/22 15:08 ONCE ONE ORDERS Category Date Time Status Complete Blood Count Auto Diff Stat Lab 02/13/22 14:15 Results Erythrocyte Sedimentation Rate Stat Lab 02/13/22 14:15 Results - CT Data CT Scan: L-Spine Time Received: 14:[address] Reviewed: Yes: I have viewed the radiologist's interpretation Findings Narrative: Procedure(s): CT lumbar spine wo con Accession Number(s): [id number] cc: Osvaldo Mays MD; Mat Lyle MD; Itzel Charlton APRN~ FINAL REPORT CLINICAL HISTORY: back pain, swelling, FINDINGS: Axial imaging of the lumbar sp
--- NOTE | 2022-02-13 13:18 | CT_ITS ---
FINAL REPORT CLINICAL HISTORY: back pain, swelling, FINDINGS: Axial imaging of the lumbar spine was obtained without contrast. Sagittal and coronal reformatted images were also obtained and reviewed.This study was performed with techniques to keep radiation doses as low as reasonably achievable (ALARA). Individualized dose reduction techniques using automated exposure control or adjustment of mA and/or kV according to the patient's size were employed. There is no fracture. There is mild retrolisthesis of L4 on 5. The disc spaces are preserved. There is no evidence of significant central canal stenosis. L1-2: No evidence of significant central canal stenosis or neuroforaminal narrowing. L2-3: No evidence of significant central canal stenosis or neuroforaminal narrowing. L3-4: No evidence of significant central canal stenosis or neuroforaminal narrowing. L4-5: Annular bulge is present. No evidence of significant central canal stenosis or neuroforaminal narrowing. L5-S1: There are L5 pars defects. An annular bulge is present with mild right neural foraminal narrowing. IMPRESSION: L5 pars defects. Reviewed, Interpreted and Dictated by Osvaldo Mays III, MD Transcribed by Savannah Vickers Authenticated by Osvaldo Mays III, MD on 02/13/2022 02:12:[address] [facility]
--- NOTE | 2022-02-13 13:31 | PC.NURSE ---
patient to radiology with geothermal hvac technician by wheelchair
--- NOTE | 2022-02-13 13:36 | PC.NURSE ---
pt returned from radiology by wheelchair with medical imaging technician
[2022-02-13 13:41] LABS: Microscopic, Urine URINE MICROSCOPIC (MICROSCOPIC)
[2022-02-13 13:42] LABS: Appearance,Urine CLEAR (Clear); Blood, Urine Negative (Negative); Color,Urine YELLOW (Yellow); Glucose,Urine (UA) Negative (Negative); Ketones,Urine TRACE (Negative); Leukocyte Esterase,Urine Negative (Negative); Nitrate,Urine Negative (Negative); PH,Urine 6.5 (5.0-8.5); Protein,Urine Negative (Negative)
[2022-02-13 13:50] LABS: Bilirubin,Urine 1+ (Negative)
[2022-02-13 14:06] LABS: Bacteria,Urine Trace /lpf
[2022-02-13 14:23] VITALS: BP 102/45; PULSE 64; O2SAT 100
[2022-02-13 14:30] VITALS: BP 96/53; PULSE 61; O2SAT 100
[2022-02-13 14:30] LABS: Basophils # 0.3 K/mm3 (0-0.2); Basophils % 2.5 % (0.1-2.0); Eosinophils # 0.2 K/mm3 (0.0-0.4); Eosinophils % 2.2 % (0.1-12.0); Hematocrit 47.1 % (37.0-47.0); Hemoglobin 15.3 g/dL (12.2-16.2); Lymphocytes # 2.8 K/mm3 (0.7-4.5); Mean Corpuscular HGB Conc 32.5 g/dL (31.8-35.4); Mean Corpuscular Hemoglobin 32.2 pg (27.0-31.2); Mean Corpuscular Volume 99.1 fl (81-99); Mean Platelet Volume 8.8 fl (7.4-10.4); Monocytes # 0.7 K/mm3 (0.1-1.0); Monocytes % 7.2 % (1.7-9.3); Neutrophils # 5.9 K/mm3 (1.8-7.8); Platelet Count 299 K/mm3 (142-424); Red Blood Count 4.76 M/mm3 (4.20-5.40); Red Cell Distribution Width 13.5 % (11.5-17.5); White Blood Count 9.8 K/mm3 (4.8-10.8)
[2022-02-13 14:36] LABS: Alanine Aminotransferase 14 U/L (12-78); Albumin Level 4.3 g/dl (3.5-5.0); Albumin/Globulin Ratio 1.6 (1.1-1.8); Alkaline Phosphatase 72 U/L (38-126); Anion Gap 10.6 mEq/L (5-15); Aspartate Amino Transferase 25 U/L (14-36); Blood Urea Nitrogen 8 mg/dl (7-17); Carbon Dioxide 29 mmol/L (22.0-30.0); Chloride 106 mmol/L (98-107); Creatinine Clearance Estimated 142 mL/min (50-200); Estimated Glomerular Filt Rate 117 ml/min (>60); GFR (African American) 142 ML/MIN (>60); Globulin 2.7 g/dL (1.3-3.2); Glucose 79 mg/dl (74-100); Lipase 54 U/L (23-300); Potassium 3.6 mmoL/L (3.5-5.1); Sodium 142 mmol/L (136-145)
[2022-02-13 14:38] LABS: Bilirubin,Total < 0.1 mg/dl (0.2-1.3)
[2022-02-13 14:41] LABS: C-Reactive Protein 7.9 mg/L (0-4)
[2022-02-13 15:14] LABS: Erythrocyte Sedimentation Rate 14 mm/hr (0-20)
[2022-02-13 15:27] VITALS: BP 103/62; PULSE 76; RESP 17; TEMP 36.6; O2SAT 95
[2022-02-13 15:32] VITALS: BP 103/69; PULSE 78; RESP 16; TEMP 36.6; O2SAT 98
== END 2022-02-13 15:33 | disposition home or self-care (01) ==
PROVIDERS: Emergency Provider Emergency Medicine; PCP Nurse Practitioner
DX: M54.50 Low back pain, unspecified (principal); S30.0XXA Contusion of lower back and pelvis, initial encounter; F41.9 Anxiety disorder, unspecified; J45.909 Unspecified asthma, uncomplicated; I49.9 Cardiac arrhythmia, unspecified; F32.9 Major depressive disorder, single episode, unspecified; K21.9 Gastro-esophageal reflux disease without esophagitis; G43.909 Migraine, unspecified, not intractable, without status migrainosus; I25.10 Atherosclerotic heart disease of native coronary artery without angina pectoris; N28.9 Disorder of kidney and ureter, unspecified; E03.9 Hypothyroidism, unspecified; Z79.899 Other long term (current) drug therapy
CPT/HCPCS: 72131; 80053; 81001; 83690; 85025; 85651; 86140; 99284

== ENCOUNTER → 2022-11-01 13:25 | Outpatient (CLI) | payer BC, SELFPAY | PROVIDERS: PCP Obstetrics & Gynecology; Visit Provider Internal Medicine Pulmonary Disease | DX: R06.00 Dyspnea, unspecified (principal) | CPT/HCPCS: 94070; 95070; J7674 ==

== ENCOUNTER → 2022-11-07 13:31 | Outpatient (CLI) | payer BC, SELFPAY ==
--- NOTE | 2022-11-07 13:35 | MM_ITS ---
PROCEDURE INFORMATION: Exam: MG Bilateral Diagnostic Breast Tomosynthesis Exam date and time: 11/07/2022 1:30 PM Age: 32 years old Clinical indication: Left breast palpable lump TECHNIQUE: Imaging protocol: Bilateral Diagnostic tomosynthesis and 2D mammography including computer-aided detection (CAD) when performed. Unilateral or bilateral exam. COMPARISON: 1. MG MM DIG MAMM DX UNILAT LT CAD 06/20/2021 2:16 PM 2. MG MM DIG MAMM BI DX W/CAD 01/04/2021 2:04 PM FINDINGS: MAMMOGRAPHY: The breast tissue is composed of scattered areas of fibroglandular density. There is no stellate mass, architectural distortion or suspicious microcalcifications in either breast to suggest malignancy. A skin marker was placed over an area of palpable concern in the left lower inner quadrant. Predominantly adipose tissue is identified. No skin thickening or axillary adenopathy. IMPRESSION: Patient to return for left breast ultrasound for full evaluation of the patient's complaint of a palpable abnormality ASSESSMENT: BI-RADS Category 0: Incomplete- Need Additional Imaging Evaluation and/or Prior Mammograms for Comparison
== END ==
PROVIDERS: PCP Obstetrics & Gynecology; Visit Provider Nurse Practitioner
DX: N63.10 Unspecified lump in the right breast, unspecified quadrant (principal); N63.20 Unspecified lump in the left breast, unspecified quadrant
CPT/HCPCS: 77062; 77066; G0279

== ENCOUNTER → 2022-12-03 09:48 | Outpatient (CLI) | payer BC, SELFPAY ==
--- NOTE | 2022-12-03 09:54 | US_ITS ---
PROCEDURE INFORMATION: Exam: US Left Breast, Complete Exam date and time: 12/03/2022 10:41 AM Age: 32 years old Clinical indication: Patient return for further evaluation of a palpable abnormality in the left lower inner quadrant. TECHNIQUE: Imaging protocol: Complete ultrasound of all four quadrants of the left breast and the retroareolar regions, including ultrasound of the axilla when performed. COMPARISON: US FNA BREAST 01/19/2021 1:10 PM FINDINGS: Breast: Sonographic images of the left breast including the retroareolar region, all 4 quadrants and the axilla do not demonstrate any solid or cystic masses. This is with particular attention to the lower inner quadrant where the patient reports a palpable abnormality. Predominantly adipose tissue is seen. No architectural distortion or acoustical shadowing. No skin thickening or axillary adenopathy. Other findings: Review of the patient's mammogram dated 11/07/2022 did not demonstrate any suspicious findings IMPRESSION: Palpable abnormality in the left breast corresponds both mammographically and sonographically to normal fibroglandular structures. There is no mammographic evidence of malignancy. Further evaluation of a palpable abnormality should be based on clinical grounds regardless of radiographic findings or lack thereof. Annual bilateral mammographic screening is recommended to commence at the age of 40 unless otherwise clinically indicated. ASSESSMENT: BI-RADS Category 1: Negative
== END ==
PROVIDERS: PCP Nurse Practitioner; Visit Provider Nurse Practitioner
DX: N63.20 Unspecified lump in the left breast, unspecified quadrant (principal)
CPT/HCPCS: 76641

== ENCOUNTER → 2023-05-31 09:44 | Outpatient (CLI) | payer BC, SELFPAY ==
--- NOTE | 2023-05-31 09:47 | MR_ITS ---
FINAL REPORT CLINICAL HISTORY: CHRONIC LOW BACK PAIN bilateral leg pain with numbness, tingling and burning when walking long distance 15 ml prohance FINDINGS: Multiplanar MR imaging of the lumbar spine was performed without and with contrast. On the sagittal T2-weighted images, disc degeneration is seen at L4-5. The vertebral alignment is normal. There is no evidence of fracture. The conus is seen at approximately the L1 level and has an unremarkable appearance. L1-2: No significant canal stenosis or neuroforaminal narrowing is seen. L2-3: No significant canal stenosis or neuroforaminal narrowing is seen. L3-4: No significant canal stenosis or neuroforaminal narrowing is seen. L4-5: An annular bulge is present. No significant canal stenosis or neuroforaminal narrowing is seen. L5-S1: An annular bulge is present. No significant canal stenosis or neuroforaminal narrowing is seen. No abnormal contrast enhancement is identified. IMPRESSION: L4-5 annular bulge. No focal disc protrusion or evidence of nerve root impingement. No abnormal contrast-enhancement identified. Authenticated and [facility]
== END ==
LOC: RAD 09:44
PROVIDERS: PCP Nurse Practitioner; Visit Provider Physician Assistant Medical
DX: M54.50 Low back pain, unspecified (principal); G89.29 Other chronic pain
CPT/HCPCS: 72158; 76376; A9576

== ENCOUNTER 2023-10-24 10:36 | Outpatient (CLI) | payer BC, SELFPAY ==
--- NOTE | 2023-10-24 10:40 | MR_ITS ---
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 There is no evidence of intracranial hemorrhage or mass. The ventricular size is normal, with note once again made of a cavum septum pellucid et vergae. There is no evidence of shift of the midline structures. No abnormal extra-axial fluid collection is identified. Low-lying cerebellar tonsils remain present and stable since the prior MRI. No area of abnormal restricted diffusion is identified. Normal major vessel vascular flow voids are seen. A 4 mm fluid signal focus is once again identified in the posterior pituitary, consistent with a cyst. IMPRESSION: Low-lying cerebellar tonsils remain stable since the prior MR. The 4 mm pituitary cyst also remains present and stable. Reviewed, Interpreted and Dictated by Osvaldo Mays III, MD Transcribed by Lacie Spears Authenticated and [facility]
== END 2023-10-24 23:59 ==
LOC: RAD 10:36
PROVIDERS: PCP Obstetrics & Gynecology; Visit Provider Physician Assistant Medical
DX: G93.5 Compression of brain (principal); G43.719 Chronic migraine without aura, intractable, without status migrainosus
CPT/HCPCS: 70551

== ENCOUNTER 2024-06-09 09:04 | Outpatient (CLI) | payer BC, SELFPAY ==
--- NOTE | 2024-06-09 09:07 | MR_ITS ---
FINAL REPORT TECHNIQUE: Multiplanar MR without gadolinium enhancement CLINICAL HISTORY: LOWER EXTREMITY NUMBNESS. BILATERAL LEG PAIN. LOW BACK PAIN COMPARISON: 05/31/2023 FINDINGS: Sagittal images show normal vertebral height. Alignment is normal. Marrow signal pattern is unremarkable. L1-2: No evidence of canal stenosis or neural foraminal narrowing. L2-3: No evidence of canal stenosis or neural foraminal narrowing. L3-4: No evidence of canal stenosis or neural foraminal narrowing. L4-5: A minimal annular bulge is noted, similar to the prior exam of 2022. L5-S1: No evidence of canal stenosis or neural foraminal narrowing. IMPRESSION: No evidence of canal stenosis or neural foraminal narrowing. Minimal L4-5 annular bulge. Reviewed, Interpreted and Dictated by Poncho Iyer MD Transcribed by Lacie Spears Authenticated and [facility]
== END 2024-06-09 23:59 | disposition home or self-care (01) ==
LOC: RAD 09:05
PROVIDERS: PCP Nurse Practitioner; Visit Provider Physician Assistant Medical
DX: R20.0 Anesthesia of skin (principal); M54.50 Low back pain, unspecified; G89.29 Other chronic pain
CPT/HCPCS: 72148

== ENCOUNTER 2024-09-24 14:14 | Outpatient (CLI) | payer MEDICAID, SELFPAY ==
--- NOTE | 2024-09-24 14:19 | MM_ITS ---
PROCEDURE INFORMATION: Exam: MG Bilateral Diagnostic Breast Tomosynthesis Exam date and time: 09/24/2024 2:19 PM Age: 33 years old Clinical indication: Bilateral breast pain; Bilateral breast thickening TECHNIQUE: Imaging protocol: Bilateral Diagnostic tomosynthesis and 2D mammography including computer-aided detection (CAD) when performed. Unilateral or bilateral exam. COMPARISON: 1. MG MM DIG MAMM BI DX W/CAD 11/07/2022 1:30 PM 2. MG MM DIG MAMM DX UNILAT LT CAD 06/20/2021 2:16 PM FINDINGS: MAMMOGRAPHY: Breast composition: The breasts are almost entirely fatty. Breast mammogram findings: There is no stellate mass, architectural distortion or suspicious microcalcifications in either breast to suggest malignancy. No skin thickening or axillary adenopathy. Skin markers were placed over palpable thickening in both upper breasts. Routine and spot compression views demonstrate predominantly adipose tissue IMPRESSION: Patient to return for targeted bilateral breast ultrasound for full evaluation of the patient's complaint of bilateral breast pain and thickening ASSESSMENT: BI-RADS Category 0: Incomplete- Need Additional Imaging Evaluation
== END 2024-09-24 23:59 | disposition home or self-care (01) ==
LOC: RAD 14:15
PROVIDERS: PCP Nurse Practitioner; Visit Provider Nurse Practitioner
DX: N63.12 Unspecified lump in the right breast, upper inner quadrant (principal)
CPT/HCPCS: 77062; 77066; G0279

== ENCOUNTER 2024-10-08 14:09 | Outpatient (CLI) | payer MEDICAID, SELFPAY ==
--- NOTE | 2024-10-08 14:12 | US_ITS ---
PROCEDURE INFORMATION: Exam: US Left Breast, Complete US Right Breast, Complete Exam date and time: 10/08/2024 2:26 PM Age: 34 years old Clinical indication: Breast pain; Left . Bilateral upper breast thickening TECHNIQUE: Imaging protocol: Complete ultrasound of all four quadrants of the left breast and the retroareolar regions, including ultrasound of the axilla when performed. Complete ultrasound of all four quadrants of the right breast and the retroareolar regions, including ultrasound of the axilla when performed. COMPARISON: US BREAST LT COMPLETE 10/08/2024 2:26 PM FINDINGS: ULTRASOUND: Breast ultrasound findings: Sonographic images of both breasts including the retroareolar regions, all 4 quadrants and the axilla do not demonstrate any solid or cystic masses. No architectural distortion or acoustical shadowing. No skin thickening or axillary adenopathy. Review of the patient's most recent mammogram dated 09/24/2021 not demonstrate any suspicious findings. IMPRESSION: No sonographic evidence of malignancy. Annual mammographic screening is recommended unless otherwise clinically indicated. Further evaluation of a palpable abnormality should be based on clinical grounds regardless of radiographic findings or lack thereof. ASSESSMENT: BI-RADS Category 1: Negative.
== END 2024-10-08 23:59 | disposition home or self-care (01) ==
LOC: RAD 14:10
PROVIDERS: PCP Nurse Practitioner; Visit Provider Nurse Practitioner
DX: N64.4 Mastodynia (principal)
CPT/HCPCS: 76641